=== PATIENT | male | born 1945 | race Caucasian/White ===

== ENCOUNTER 2021-12-30 11:19 | Inpatient (IN) ==
[2021-12-30 12:24] LABS: Basophils # (auto) 0.01 K/uL (0-0.2); Basophils % (auto) 0.1 %; Eosinophils # (auto) 0.04 K/uL (0-0.5); Eosinophils % (auto) 0.4 %; Hematocrit (blood only) 38.7 % (42-52); Hemoglobin 13.4 g/dL (14.0-18.0); Immature Granulocytes # (auto) 0.03 K/uL (0.00-0.02); Immature Granulocytes % (auto) 0.3 %; Lymphocytes # (auto) 1.25 K/uL (1.2-3.4); Lymphocytes % (auto) 12.4 %; Mean Corpuscular Hemoglobin 30.8 pg (25-34); Mean Corpuscular Hgb Conc 34.6 g/dL (32-36); Mean Platelet Volume 10.3 fL (7.4-10.4); Monocytes # (auto) 0.84 K/uL (0.11-0.59); Monocytes % (auto) 8.3 %; Neutrophils # (auto) 7.94 K/uL (1.4-6.5); Neutrophils % (auto) 78.5 %; Platelet Count 227 K/uL (130-400); RDW Coefficient of Variation 13.7 % (11.5-14.5); RDW Standard Deviation 44.9 fL (36.4-46.3); Red Blood Count 4.35 M/uL (4.7-6.1); White Blood Count 10.11 K/uL (4.8-10.8)
[2021-12-30 12:48] LABS: Albumin Globulin Ratio 1.1 (0.9-2); Albumin Level 4.1 gm/dl (3.4-5.0); BUN Creatinine Ratio 11.7 (10-20); Bilirubin,Total 0.8 mg/dl (0.2-1.0); Calcium 9.7 mg/dl (8.5-10.1); Creatinine Clr Calc Pharmacy 26.2 ml/min; Est GFR (African American) 22.8 ml/min; Est GFR (Non-African American) 19.6 ml/min; Globulin 3.7 gm/dl (2.5-4.0); Potassium 3.4 mmol/L (3.5-5.1); Total Protein 7.8 gm/dl (6.0-8.3)
[2021-12-30] MEDS ORDERED: SODIUM CHLORIDE 0.9% 1000ML 1,000 ML IV STA (12:59)
--- NOTE | 2021-12-30 13:40 | XRay Report ---
XR chest 1V portable CLINICAL HISTORY: elevated creat. Evaluate cardiopulmonary status COMPARISON STUDY: No previous studies for comparison. TECHNIQUE: 1 view of the chest FINDINGS: Single frontal view of the chest demonstrates the cardiomediastinal silhouette to be within normal li mits. The lungs are clear of alveolar opacities. There is no evidence for pleural effusion. There is no evidence for vascular congestion. There is no acute osseous pathology. IMPRESSION: 1. No acute cardiopulmonary disease. ACT 112: Negative or not required by law. Electronically signed by: Jj Lagos M.D. 12/30/2021 1:38 PM
--- NOTE | 2021-12-30 13:55 | Emergency Department Note ---
Impression & Plan ADAM (acute kidney injury), COVID-19, Hydronephrosis, Calculus, kidney ED Provider Note NAME: DENNYS GASTON AGE: 76 SEX: M : 1945 ARRIVES VIA: Walk-In INFORMANT: Patient, ED PROVIDER(S): Jan Newman DO CHIEF COMPLAINT: Generalized illness HPI: The patient is a 76-year-old male who presented to the emergency department at the request of his primary care physician for generalized illness. The patient has been having ongoing symptoms for quite some time. He does have a history of chronic kidney disease as well as kidney stones. He had lithotripsy in the past and had stent removal last week. He has been to the [facility] emergency department multiple times for the symptoms. He states he has been noted to have elevation in his creatinine compared to his baseline. He has been treated with IV fluids and then sent home. He went to see his family doctor in follow-up today was referred to our facility. 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 The patient is also been noticing nausea but denies having any chest pain. He denies having any fever today. He does admit to having a 30 pound weight loss recently. ROS: See above HPI for pertinent positives & negatives. A total of 10 systems reviewed and were otherwise negative. PAST MEDICAL HISTORY: See Below PAST SURGICAL HISTORY: See Below FAMILY HISTORY: See Below SOCIAL HISTORY: See Below HOME MEDICATIONS: See Below ALLERGIES: See Below VITALS: See Below PHYSICAL EXAMINATION: GENERAL: Patient is awake alert in no acute distress patient is resting comfortably and showing no signs of anxiety EYES: The conjunctivae are clear. The pupils are round and reactive. EARS, NOSE, MOUTH AND THROAT: The nose is without any evidence of any deformity. NECK: The neck is nontender and supple. RESPIRATORY: Normal respiratory effort is noted there is no evidence of wheezing rhonchi or rales CARDIOVASCULAR: Regular rate and rhythm noted there no murmurs rubs or gallops normal S1 normal S2. GASTROINTESTINAL: The abdomen is soft. Abdomen is nontender. MUSCULOSKELETAL/EXTREMITIES: There is no evidence of gross deformity full range of motion is noted in the hips and shoulders. SKIN: There is no obvious evidence of any rash. There are no petechiae, pallor or cyanosis noted. NEUROLOGIC: Patient is awake alert and oriented x3 strength is symmetric patellar reflexes are 2+ bilaterally MEDICAL DECISION MAKING: The patient is a 76-year-old male who is a history of chronic renal sufficiency who presented to the emergency department for an evaluation of elevated creatinine to baseline. The patient was seen at [facility] multiple times. His family doctor sent him to the emergency department at [facility] for further evaluation. The patient was treated with IV fluids in the emergency department. He was reevaluated multiple times. I discussed the ira ent's laboratory and radiographic studies with him. There was a delay in obtaining the urinalysis on the patient and I felt this was required to determine if there was an infection. Ultimately the urinalysis does not appear to be consistent with infection. I discussed patient's condition with the on- call [facility] hospitalist group. They have agreed to evaluate the patient in the emergency department for further management and disposition. Triage Nursing notes reviewed. Prior medical records reviewed Vital Signs: reviewed and remarkable for no significant abnormalities Differential diagnosis: Infection, dehydration, metabolic abnormality, hypo/hyperglycemia, electrolyte disturbance, anemia, hypoxia, cardiac sources, intracerebral event, toxicologic, neurologic, as well as other pathologies. ER treatment provided: See below Diagnostics interpreted by me: ECG: EKG was obtained in the emergency department. My interpretation is normal sinus rhythm at 64 bpm. There is no ectopy. There is no acute ST segment abnormalities noted. No previous tracing was available. Cardiac Monitoring: An order was placed for continuous cardiac monitoring. The monitor shows a rate of 65 bpm with sinus rhythm. Laboratory studies: As stated above and show below. Imaging studies: See below Consultation(s): I discussed this case with Herlinad Mcdaniel who is on-call for the [facility] hospitalist group. I discussed this case with Dr. Horton Past Med/Surg History Medical History CKD (chronic kidney disease) Kidney stone Surgical History H/O lithotripsy Social History Feels Safe at Home: Yes Allergies Allergies Allergy/AdvReac Type Severity Reaction Status Date / Time shrimp AdvReac Severe vomiting Unverified 12/30/21 16:07 and diarrhea Home Meds Home Medications Medication Instructions Recorded Confirmed amlodipine 5 mg tablet 5 mg PO DAILY 12/30/21 12/30/21 atorvastatin 40 mg tablet 40 mg PO DAILY 12/30/21 12/30/21 carvedilol 6.25 mg tablet 6.25 mg PO BID 12/30/21 12/30/21 glucagon 3 mg/actuation nasal 3 mg INTRANASAL UD 12/30/21 12/30/21 spray (Baqsimi) hydrochlorothiazide 25 mg tablet 25 mg QAM 12/30/21 12/30/21 insulin NPH-regular 70-30 U-100 20 unit SUBCUT QAM 12/30/21 12/30/21 insulin 100 unit/mL subcutaneous pen (Novolin 70-30 FlexPen U-100 Insulin) lisinopril 10 mg tablet 10 mg PO DAILY 12/30/21 12/30/21 semaglutide 1 mg/dose (4 mg/3 mL) 0 mg SUBCUT WK 12/30/21 12/30/21 subcutaneous pen injector (Ozempic) tamsulosin 0.4 mg capsule 0.4 mg PO BID 12/30/21 12/30/21 ticagrelor 90 mg tablet (Brilinta) 90 mg PO BID 12/30/21 12/30/21 Results & Data (ED) Vital Signs Vital Signs - 24 hr 12/30/21 11:25 12/30/21 13:21 12/30/21 13:35 Temperature 36.6 C Temperature Source Temporal Artery Scan Pulse Rate 69 Pulse Rate [Right Finger] 64 66 Respiratory Rate 16 16 18 Respiratory Effort / Characteristics Non-Labored Respiratory Depth Normal Normal Respiratory Pattern Blood Pressure 123/93 Blood Pressure [Right Arm] 115/71 115/71 Blood Pressure Mean 103 Blood Pressure Mean [Right Arm] 85 85 Pulse Oximetry 96 98 94 Oxygen Delivery Method Room Air Room Air Room Air Sepsis Recent Fever Within 48 Hours No Sepsis New/Unexplained Change in Mental Status No Sepsis Action Taken by Nursing No Action Required 12/30/21 13:39 12/30/21 15:32 12/30/21 17:03 Temperature Temperature Source Pulse Rate Pulse Rate [Right Finger] 64 65 Respiratory Rate 20 20 Respiratory Effort / Characteristics Non-Labored Spontaneous Non-Labored Spontaneous Respiratory Depth Normal Normal Respiratory Pattern Regular Regular Blood Pressure Blood Pressure [Right Arm] 123/71 127/78 Blood Pressure Mean Blood Pressure Mean [Right Arm] 88 94 Pulse Oximetry 95 95 Oxygen Delivery Method Room Air Room Air Room Air Sepsis Recent Fever Within 48 Hours Sepsis New/Unexplained Change in Mental Status Sepsis Action Taken by Jail Medications Current Medication List: was personally reviewed by me Laboratory Data Attestation: I reviewed the patient's lab results. Result diagrams: 12/30/21 12:00 12/30/21 12:00 Lab Results 12/30/21 12/30/21 12/30/21 Range/Units 12:00 12:00 13:35 WBC 10.11 (4.8-10.8) K/uL RBC 4.35 L (4.7-6.1) M/uL Hgb 13.4 L (14.0-18.0) g/dL Hct 38.7 L (42-52) % MCV 89.0 (80-100) fL MCH 30.8 (25-34) pg MCHC 34.6 (32-36) g/dL RDW Std Deviation 44.9 (36.4-46.3) fL RDW Coeff of Marisa 13.7 (11.5-14.5) % Plt Count 227 (130-400) K/uL MPV 10.3 (7.4-10.4) fL Immature Gran % (Auto) 0.3 % Neut % (Auto) 78.5 % Lymph % (Auto) 12.4 % Rapides % (Auto) 8.3 % Eos % (Auto) 0.4 % Baso % (Auto) 0.1 % Neut # (Auto) 7.94 H (1.4-6.5) K/uL Lymph # (Auto) 1.25 (1.2-3.4) K/uL Rapides # (Auto) 0.84 H (0.11-0.59) K/uL Eos # (Auto) 0.04 (0-0.5) K/uL Baso # (Auto) 0.01 (0-0.2) K/uL Immature Gran # (Auto) 0.03 H (0.00-0.02) K/uL Sodium 136 (136-145) mmol/L Potassium 3.4 L (3.5-5.1) mmol/L Chloride 104 (98-107) mmol/L Carbon Dioxide 21 (21-32) mmol/L Anion Gap 11 (3-11) BUN 35 H (6-23) mg/dl Creatinine 2.99 H (0.6-1.4) mg/dl Est Cr Clr Drug Dosing 26.2 ml/min Est GFR ( Amer) 22.8 ml/min Est GFR (Non-Af Amer) 19.6 ml/min BUN/Creatinine Ratio 11.7 (10-20) Glucose 170 H (70-99(Fasting)) mg/dl Calcium 9.7 (8.5-10.1) mg/dl Magnesium (1.7-2.4) mg/dl Total Bilirubin 0.8 (0.2-1.0) mg/dl AST 20 (13-39) U/L ALT 27 (7-52) U/L Alkaline Phosphatase 87 (34-104) U/L Total Creatine Kinase (30-223) U/L Troponin I High Sens (0-20) pg/ml Total Protein 7.8 (6.0-8.3) gm/dl Albumin 4.1 (3.4-5.0) gm/dl Globulin 3.7 (2.5-4.0) gm/dl Albumin/Globulin Ratio 1.1 (0.9-2) Lipase (11-82) U/L Urine Color Urine Appearance (Clear) Urine pH (4.5-7.5) Ur Specific [place] (1.000-1.030) Urine Protein (Negative) Urine Glucose (UA) (Negative) Urine Ketones (Negative) Urine Blood (Negative) Urine Nitrite (Negative) Urine Bilirubin (Negative) Urine Urobilinogen (Negative) Ur Leukocyte Esterase (Negative) Urine WBC (Auto) (0-5) /hpf Urine RBC (Auto) (0-4) /hpf U Hyaline Cast (Auto) (0-5) /lpf U Epithel Cells (Auto) (0-5) /lpf Urine Bacteria (Auto) (Negative) Urine Yeast SARS-CoV-2, RNA, NAAT POSITIVE A* (NEGATIVE) 12/30/21 12/30/21 12/30/21 Range/Units 13:49 13:49 17:10 WBC (4.8-10.8) K/uL RBC (4.7-6.1) M/uL Hgb (14.0-18.0) g/dL Hct (42-52) % MCV (80-100) fL MCH (25-34) pg MCHC (32-36) g/dL RDW Std Deviation (36.4-46.3) fL RDW Coeff of Marisa (11.5-14.5) % Plt Count (130-400) K/uL MPV (7.4-10.4) fL Immature Gran % (Auto) % Neut % (Auto) % Lymph % (Auto) % Rapides % (Auto) % Eos % (Auto) % Baso % (Auto) % Neut # (Auto) (1.4-6.5) K/uL Lymph # (Auto) (1.2-3.4) K/uL Rapides # (Auto) (0.11-0.59) K/uL Eos # (Auto) (0-0.5) K/uL Baso # (Auto) (0-0.2) K/uL Immature Gran # (Auto) (0.00-0.02) K/uL Sodium (136-145) mmol/L Potassium (3.5-5.1) mmol/L Chloride (98-107) mmol/L Carbon Dioxide (21-32) mmol/L Anion Gap (3-11) BUN (6-23) mg/dl Creatinine (0.6-1.4) mg/dl Est Cr Clr Drug Dosing ml/min Est GFR ( Amer) ml/min Est GFR (Non-Af Amer) ml/min BUN/Creatinine Ratio (10-20) Glucose (70-99(Fasting)) mg/dl Calcium (8.5-10.1) mg/dl Magnesium 1.7 (1.7-2.4) mg/dl Total Bilirubin (0.2-1.0) mg/dl AST (13-39) U/L ALT (7-52) U/L Alkaline Phosphatase (34-104) U/L Total Creatine Kinase 221 (30-223) U/L Troponin I High Sens 7.8 (0-20) pg/ml Total Protein (6.0-8.3) gm/dl Albumin (3.4-5.0) gm/dl Globulin (2.5-4.0) gm/dl Albumin/Globulin Ratio (0.9-2) Lipase 177 H (11-82) U/L Urine Color Yellow Urine Appearance Clear (Clear) Urine pH 5.0 (4.5-7.5) Ur Specific [place] 1.024 (1.000-1.030) Urine Protein 1+ H (Negative) Urine Glucose (UA) 3+ H (Negative) Urine Ketones Negative (Negative) Urine Blood 1+ H (Negative) Urine Nitrite Negative (Negative) Urine Bilirubin Negative (Negative) Urine Urobilinogen Negative (Negative) Ur Leukocyte Esterase Negative (Negative) Urine WBC (Auto) 1-5 (0-5) /hpf Urine RBC (Auto) 5-10 H (0-4) /hpf U Hyaline Cast (Auto) 1-5 (0-5) /lpf U Epithel Cells (Auto) 10-20 H (0-5) /lpf Urine Bacteria (Auto) Negative (Negative) Urine Yeast Not Reportable SARS-CoV-2, RNA, NAAT (NEGATIVE) Administered Medications Discontinued Medications Sodium Chloride (Nss 1000ml) 1,000 mls @ 999 mls/hr IV .Q1H1M STA Stop: 12/30/21 13:59 Last Infusion: 12/30/21 15:44 Dose: 0 mls/hr Documented by: [id number] Admin: 12/30/21 13:45 Dose: 999 mls/hr Documented by: [id number] Imaging Data Radiologist's Impression: Abdomen/Pelvis CT 12/30/21 12:59 CT SCAN OF THE ABDOMEN AND PELVIS WITHOUT IV CONTRAST CLINICAL HISTORY: Elevated serum creatinine COMPARISON STUDY: No priors. TECHNIQUE: CT scan of the abdomen and pelvis is performed from the lung bases to the proximal femora. Images are reviewed in the axial, sagittal, and coronal planes. IV contrast was not administered for this examination. A dose lowering technique was utilized adhering to the principles of ALARA. CT DOSE: 1082.63 mGycm FINDINGS: Lung bases: The heart is normal in size and without pericardial effusion. The coronary arteries are densely calcified. There are punctate calcified granulomas. A 2 mm noncalcified nodule is seen in the left lower lobe on image #3. The lung bases are otherwise clear noting bibasilar scarring/atelectasis. Liver: The unenhanced liver is normal in size, contour, and attenuation. There is no intrahepatic biliary ductal dilatation. Gallbladder: Unremarkable. Spleen: Normal in size and attenuation. Pancreas: Unremarkable. Adrenal glands: Unremarkable. Kidneys: The unenhanced kidneys demonstrate cortical atrophy. There are 2 obstructing calculi in the left proximal ureter which measure up to 1.4 cm. These are seen on images #204 and #218. The larger stone is seen at the level of L3. This causes moderate to severe left-sided hydronephrosis. An additional 5 mm calculus in the distal left ureter seen on image #369 just above the vesicoureteral junction. There is associated left-sided perinephric and periureteric stranding. There are numerous additional nonobstructing left renal calculi which measure up to 1.8 cm. Nonobstructing right renal calculi measure up to 8 mm. There is no right-sided hydronephrosis. An indeterminant 2.1 cm exophytic lesion arises from the interpolar left kidney on image #137. Additional simple and complex cysts are noted in both kidneys. Abdominal vasculature: There is advanced atherosclerotic calcification of the abdominal aorta. An aortobiiliac stent graft is in place. The residual aneurysm sac measures 4.9 x 5.4 cm (AP x transverse). Bowel: There are scattered colonic diverticula without CT evidence of acute diverticulitis. No bowel obstruction is identified. The appendix is well- visualized and normal. Peritoneum: There is no intraperitoneal free air or abdominal ascites. Lymphadenopathy: None. Pelvic viscera: The prostate gland is mildly enlarged and heterogeneous. The bladder is normal as visualized. Postoperative change is noted in the groin bilaterally. Skeletal structures: The skeletal structures are osteopenic. There are healed right-sided rib fractures. Mild lumbosacral spondylosis is observed. No lytic or blastic lesions are seen. IMPRESSION: 1. There are 3 obstructive left renal calculi as above. The largest stone measures 1.4 cm and this causes moderate to severe left left-sided hydronephrosis. 2. Numerous additional nonobstructing renal calculi are seen bilaterally. 3. A 2.1 cm indeterminant lesion arises from the interpolar left kidney. This could represent a complex cyst or less likely renal neoplasm. Correlate with any prior outside imaging studies to assess for stability. A nonemergent contrast-enhanced renal protocol CT or MRI could be considered for further evaluation. 4. The patient is status post aortobiiliac stent graft repair of an infrarenal abdominal aortic aneurysm. The residual aneurysm sac measures 4.9 x 5.4 cm. 5. Additional findings as above. ACT 112: Negative or not required by law. Electronically signed by: Talon Bradley M.D. 12/30/2021 3:24 PM Chest X-Ray 12/30/21 13:00 XR chest 1V portable CLINICAL HISTORY: elevated creat. Evaluate cardiopulmonary status COMPARISON STUDY: No previous studies for comparison. TECHNIQUE: 1 view of the chest FINDINGS: Single frontal view of the chest demonstrates the cardiomediastinal silhouette to be within normal limits. The lungs are clear of alveolar opacities. There is no evidence for pleural effusion. There is no evidence for vascular congestion. There is no acute osseous pathology. IMPRESSION: 1. No acute cardiopulmonary disease. ACT 112: Negative or not required by law. Electronically signed by: Jj Lagos M.D. 12/30/2021 1:38 PM Discharge Plan Visit Data Chief Complaint: Illness Stated Complaint: eye ED Provider: Jan Newman Discharge Problem: ADAM (acute kidney injury), COVID-19, Hydronephrosis, Calculus, kidney Patient Disposition: Being Evaluated by Hospitalist Forms Stand Alone Forms: My [facility] Prescriptions Prescriptions: No Action atorvastatin 40 mg tablet 40 mg PO DAILY RF: 0 carvedilol 6.25 mg tablet 6.25 mg PO BID RF: 0 amlodipine 5 mg tablet 5 mg PO DAILY RF: 0 tamsulosin 0.4 mg capsule 0.4 mg PO BID RF: 0 lisinopril 10 mg tablet 10 mg PO DAILY RF: 0 hydrochlorothiazide 25 mg tablet 25 mg QAM RF: 0 Novolin 70-30 FlexPen U-100 100 unit/mL (70-30) insulin pen 20 unit SUBCUT QAM RF: 0 Brilinta 90 mg tablet 90 mg PO BID RF: 0 Baqsimi 3 mg/actuation spray,non-aerosol 3 mg INTRANASAL UD RF: 0 Ozempic 1 mg/dose (4 mg/3 mL) pen injector 0 mg SUBCUT WK RF: 0 Referrals Referrals: Filiberto Hernandes [Primary Care Provider] - Discharge Problem: Hydronephrosis Qualifiers: Hydronephrosis type: unspecified Qualified Code(s): N13.30 - Unspecified hydronephrosis
[2021-12-30 14:49] LABS: Magnesium 1.7 mg/dl (1.7-2.4)
--- NOTE | 2021-12-30 15:25 | CT Scan Report ---
CT SCAN OF THE ABDOMEN AND PELVIS WITHOUT IV CONTRAST CLINICAL HISTORY: Elevated serum creatinine COMPARISON STUDY: No priors. TECHNIQUE: CT scan of the abdomen and pelvis is performed from the lung bases to the proximal femora. Images are reviewed in the axial, sagittal, and coronal planes. IV contrast was not administered for this examination. A dose lowering technique was utilized adhering to the principles of ALARA. CT DOSE: 1082.63 mGycm FINDINGS: Lung bases: The heart is normal in size and without pericardial effusion. The coronary arteries are d ensely calcified. There are punctate calcified granulomas. A 2 mm noncalcified nodule is seen in the left lower lobe on image #3. The lung bases are otherwise clear noting bibasilar scarring/atelectasis . Liver: The unenhanced liver is normal in size, contour, and attenuation. There is no intrahepatic harshil iary ductal dilatation. Gallbladder: Unremarkable. Spleen: Normal in size and attenuation. Pancreas: Unremarkable. Adrenal glands: Unremarkable. Kidneys: The unenhanced kidneys demonstrate cortical atrophy. There are 2 obstructing calculi in the left proximal ureter which measure up to 1.4 cm. These are seen on images #204 and #218. The larger s tone is seen at the level of L3. This causes moderate to severe left-sided hydronephrosis. An additio nal 5 mm calculus in the distal left ureter seen on image #369 just above the vesicoureteral junction . There is associated left-sided perinephric and periureteric stranding. There are numerous additiona l nonobstructing left renal calculi which measure up to 1.8 cm. Nonobstructing right renal calculi me asure up to 8 mm. There is no right-sided hydronephrosis. An indeterminant 2.1 cm exophytic lesion ar ises from the interpolar left kidney on image #137. Additional simple and complex cysts are noted in both kidneys. Abdominal vasculature: There is advanced atherosclerotic calcification of the abdominal aorta. An aor tobiiliac stent graft is in place. The residual aneurysm sac measures 4.9 x 5.4 cm (AP x transverse). Bowel: There are scattered colonic diverticula without CT evidence of acute diverticulitis. No bowel obstruction is identified. The appendix is well-visualized and normal. Peritoneum: There is no intraperitoneal free air or abdominal ascites. Lymphadenopathy: None. Pelvic viscera: The prostate gland is mildly enlarged and heterogeneous. The bladder is normal as vis ualized. Postoperative change is noted in the groin bilaterally. Skeletal structures: The skeletal structures are osteopenic. There are healed right-sided rib fractur es. Mild lumbosacral spondylosis is observed. No lytic or blastic lesions are seen. IMPRESSION: 1. There are 3 obstructive left renal calculi as above. The largest stone measures 1.4 cm and this ca uses moderate to severe left left-sided hydronephrosis. 2. Numerous additional nonobstructing renal calculi are seen bilaterally. 3. A 2.1 cm indeterminant lesion arises from the interpolar left kidney. This could represent a compl ex cyst or less likely renal neoplasm. Correlate with any prior outside imaging studies to assess for stability. A nonemergent contrast-enhanced renal protocol CT or MRI could be considered for further evaluation. 4. The patient is status post aortobiiliac stent graft repair of an infrarenal abdominal aortic aneur ysm. The residual aneurysm sac measures 4.9 x 5.4 cm. 5. Additional findings as above. ACT 112: Negative or not required by law. Electronically signed by: Talon Bradley M.D. 12/30/2021 3:24 PM
[2021-12-30 17:34] LABS: Appearance Urine Clear (Clear); Bacteria Urine Automated Negative (Negative); Bilirubin Urine Negative (Negative); Blood Urine 1+ (Negative); Color Urine Yellow; Glucose Urine UA 3+ (Negative); Ketones Urine Negative (Negative); Leukocyte Esterase Urine Negative (Negative); Nitrite Urine Negative (Negative); Protein Urine 1+ (Negative); Specific Gravity Urine 1.024 (1.000-1.030); Urobilinogen Urine Negative (Negative)
--- NOTE | 2021-12-30 18:52 | History & Physical Report ---
Date of Service December 30, 2021 Assessment & Plan (1) Ureteral stone with hydronephrosis: (2) Prnrb-ts-nfspecg kidney injury: (3) COVID-19: (4) Essential hypertension: (5) History of coronary artery disease: Plan: Left renal calculi with hydronephrosis- CT A/P reviewed as below. No evidence of UTI in UA, hence no indication for ABx. Pt had lithotripsy left side with stent placement 2 weeks ago and was removed a week back at [facility]. - ED physician discussed with urology who plans for stenting tomorrow. NPO after midnight - Analgesic prn, avoid nephrotoxics CT A/P- 1. There are 3 obstructive left renal calculi as above. The largest stone measures 1.4 cm and this causes moderate to severe left left-sided hydronephrosis. 2. Numerous additional nonobstructing renal calculi are seen bilaterally. 3. A 2.1 cm indeterminant lesion arises from the interpolar left kidney. This could represent a complex cyst or less likely renal neoplasm. Correlate with any prior outside imaging studies to assess for stability. A nonemergent contrast- enhanced renal protocol CT or MRI could be considered for further evaluation. 4. The patient is status post aortobiiliac stent graft repair of an infrarenal abdominal aortic aneurysm. The residual aneurysm sac measures 4.9 x 5.4 cm. Left renal lesion- seen in CT. Will obtain records from [facility] for comparison, if unable to get, will get MRI renal protocol for evaluation. Urology on board and to evaluate further. ADAM on CKD- from obstructive calculi. Plan for OR tomorrow. Avoid nephrotoxics. No NSAIDs. Hold lisinopril. Received IVF in ED. Recheck in am Covid 19 infection- his symptoms of generalized non well being, fatigue etc is likely from COVID. No indication for treatment currently as no respiratory symptoms. Essential HTN- continue norvasc, coreg. Hold lisinopril due to ADAM DM-2- doesn't take insulin or tradjental anymore. On jardiance. Will hold and start on SSI inhouse. H/o CAD s/p stenting- Stable, denies any chest pain. Continue brilinta, lipitor, coreg. H/o AAA s/p stenting DVT ppx- SCD Full code Updated at bedside History of Present Illness Chief Complaint: Feeling unwell; abnormal lab Primary Care Provider: Filiberto Hernandes 76 year old male with h/o HTN, DM, nephrolithiasis (2019 and 2 weeks back), CAD s/p stenting who presented to the ED not feeling well as well as abnormal labs. History taken from patient and at bedside. Patient usually follows [facility] for his care and new to our system. States he had left sided nephrolithiasis for which he had lithotripsy with stenting 2 weeks back and stent was removed a week ago last Monday. He asked his PCP for labs and got them drawn last Monday. He was found to have elevated creatinine and his PCP recommended him to come to our ED for further evaluation. States his usual Cr is around 2.2 or something like that but he does not remember the OP lab value. His Cr currently is 2.99 here. Also found to have left sided ureteral calculi with mod-severe hydronephrosis, largest size being 1.4 cm. States he has been feeling weak, tired, no energy and feels sleepy. Also had weigh loss of 30lbs over the past month or so. He also tested positive for COVID in the ED but no hypoxia, chest pain, shortness of breath or other symptoms. He states he never gets bad pain with his kidney stones. He does not smoke or drink alcohol. Allergies Allergy/AdvReac Type Severity Reaction Status Date / Time shrimp AdvReac Severe vomiting Unverified 12/30/21 16:07 and diarrhea Home Medications Medication Instructions Recorded Confirmed Type amlodipine 5 mg tablet 5 mg PO DAILY 12/30/21 12/30/21 History ascorbic acid (vitamin C) 1,000 mg 1 g PO DAILY 12/30/21 12/30/21 History tablet atorvastatin 40 mg tablet 40 mg PO DAILY 12/30/21 12/30/21 History carvedilol 6.25 mg tablet 6.25 mg PO BID 12/30/21 12/30/21 History cholecalciferol (vitamin D3) 50 50 mcg PO DAILY 12/30/21 12/30/21 History mcg (2,000 unit) tablet empagliflozin 25 mg tablet 25 mg PO DAILY 12/30/21 12/30/21 History (Jardiance) glucagon 3 mg/actuation nasal 3 mg INTRANASAL UD 12/30/21 12/30/21 History spray (Baqsimi) hydrochlorothiazide 25 mg tablet 25 mg QAM 12/30/21 12/30/21 History semaglutide 1 mg/dose (4 mg/3 mL) 0 mg SUBCUT WK 12/30/21 12/30/21 History subcutaneous pen injector (Ozempic) tamsulosin 0.4 mg capsule 0.4 mg PO BID 12/30/21 12/30/21 History ticagrelor 90 mg tablet (Brilinta) 90 mg PO BID 12/30/21 12/30/21 History Past Med/Surg History Medical History CKD (chronic kidney disease) Kidney stone Surgical History H/O lithotripsy Social History Feels Safe at Home: Yes Review of Systems Review of Systems: All systems reviewed & are unremarkable except as noted in Subjective Physical Exam Physical Exam: General: Sitting comfortably in bed, not in distress, on room air HEENT: EOMI, CHAYA, MMM Chest: Clear breath sounds bilaterally, no wheezes or crackles CVS: Regular rate and rhythm, normal heart sounds, no murmur Abdomen: Soft, non tender, not distended, normal bowel sounds No CVA tenderness Neuro: Awake, alert, oriented, conversing well, non focal Extremities: No cyanosis, clubbing or edema Results & Data Results & Data ([facility]) Vital Signs (Past 12 Hours) Vital Signs Temp Pulse Pulse Resp BP BP Pulse Ox 12/30/21 17:03 65 20 127/78 95 12/30/21 15:32 64 20 123/71 95 12/30/21 13:35 66 18 115/71 94 12/30/21 13:21 64 16 115/71 98 12/30/21 11:25 36.6 C 69 16 123/93 96 Laboratory Results Short CBC 12/30/21 Range/Units 12:00 WBC 10.11 (4.8-10.8) K/uL Hgb 13.4 L (14.0-18.0) g/dL Hct 38.7 L (42-52) % Plt Count 227 (130-400) K/uL BMP 12/30/21 12:00 Sodium 136 Potassium 3.4 L Chloride 104 Carbon Dioxide 21 BUN 35 H Creatinine 2.99 H Glucose 170 H Calcium 9.7 Cardiac Enzymes 12/30/21 Range/Units 13:49 Total Creatine Kinase 221 (30-223) U/L Liver Function 12/30/21 Range/Units 12:00 Total Bilirubin 0.8 (0.2-1.0) mg/dl AST 20 (13-39) U/L ALT 27 (7-52) U/L Alkaline Phosphatase 87 (34-104) U/L Albumin 4.1 (3.4-5.0) gm/dl Urine 12/30/21 Range/Units 17:10 Urine Color Yellow Urine Appearance Clear (Clear) Urine pH 5.0 (4.5-7.5) Ur Specific Lindsay 1.024 (1.000-1.030) Urine Protein 1+ H (Negative) Urine Glucose (UA) 3+ H (Negative) Diagnostic Findings Abdomen/Pelvis CT 12/30/21 12:59 CT SCAN OF THE ABDOMEN AND PELVIS WITHOUT IV CONTRAST CLINICAL HISTORY: Elevated serum creatinine COMPARISON STUDY: No priors. TECHNIQUE: CT scan of the abdomen and pelvis is performed from the lung bases to the proximal femora. Images are reviewed in the axial, sagittal, and coronal planes. IV contrast was not administered for this examination. A dose lowering technique was utilized adhering to the principles of ALARA. CT DOSE: 1082.63 mGycm FINDINGS: Lung bases: The heart is normal in size and without pericardial effusion. The coronary arteries are densely calcified. There are punctate calcified granulomas. A 2 mm noncalcified nodule is seen in the left lower lobe on image #3. The lung bases are otherwise clear noting bibasilar scarring/atelectasis. Liver: The unenhanced liver is normal in size, contour, and attenuation. There is no intrahepatic biliary ductal dilatation. Gallbladder: Unremarkable. Spleen: Normal in size and attenuation. Pancreas: Unremarkable. Adrenal glands: Unremarkable. Kidneys: The unenhanced kidneys demonstrate cortical atrophy. There are 2 obstructing calculi in the left proximal ureter which measure up to 1.4 cm. These are seen on images #204 and #218. The larger stone is seen at the level of L3. This causes moderate to severe left-sided hydronephrosis. An additional 5 mm calculus in the distal left ureter seen on image #369 just above the vesicoureteral junction. There is associated left-sided perinephric and periureteric stranding. There are numerous additional nonobstructing left renal calculi which measure up to 1.8 cm. Nonobstructing right renal calculi measure up to 8 mm. There is no right-sided hydronephrosis. An indeterminant 2.1 cm exophytic lesion arises from the interpolar left kidney on image #137. Additional simple and complex cysts are noted in both kidneys. Abdominal vasculature: There is advanced atherosclerotic calcification of the abdominal aorta. An aortobiiliac stent graft is in place. The residual aneurysm sac measures 4.9 x 5.4 cm (AP x transverse). Bowel: There are scattered colonic diverticula without CT evidence of acute diverticulitis. No bowel obstruction is identified. The appendix is well- visualized and normal. Peritoneum: There is no intraperitoneal free air or abdominal ascites. Lymphadenopathy: None. Pelvic viscera: The prostate gland is mildly enlarged and heterogeneous. The bladder is normal as visualized. Postoperative change is noted in the groin bilaterally. Skeletal structures: The skeletal structures are osteopenic. There are healed right-sided rib fractures. Mild lumbosacral spondylosis is observed. No lytic or blastic lesions are seen. IMPRESSION: 1. There are 3 obstructive left renal calculi as above. The largest stone measures 1.4 cm and this causes moderate to severe left left-sided hydronephrosis. 2. Numerous additional nonobstructing renal calculi are seen bilaterally. 3. A 2.1 cm indeterminant lesion arises from the interpolar left kidney. This could represent a complex cyst or less likely renal neoplasm. Correlate with any prior outside imaging studies to assess for stability. A nonemergent contrast- enhanced renal protocol CT or MRI could be considered for further evaluation. 4. The patient is status post aortobiiliac stent graft repair of an infrarenal abdominal aortic aneurysm. The residual aneurysm sac measures 4.9 x 5.4 cm. 5. Additional findings as above. ACT 112: Negative or not required by law. Electronically signed by: Talon Bradlye M.D. 12/30/2021 3:24 PM Chest X-Ray 12/30/21 13:00 XR chest 1V portable CLINICAL HISTORY: elevated creat. Evaluate cardiopulmonary status COMPARISON STUDY: No previous studies for comparison. TECHNIQUE: 1 view of the chest FINDINGS: Single frontal view of the chest demonstrates the cardiomediastinal silhouette to be within normal limits. The lungs are clear of alveolar opacities. There is no evidence for pleural effusion. There is no evidence for vascular congestion. There is no acute osseous pathology. IMPRESSION: 1. No acute cardiopulmonary disease. ACT 112: Negative or not required by law. Electronically signed by: Jj Lagos M.D. 12/30/2021 1:38 PM Code Status & VTE Plan VTE Prophylaxis Plan VTE Prophylaxis will be ordered: Yes
--- NOTE | 2021-12-30 19:58 | Urology Consultation ---
Date of Consultation December 30, 2021 Assessment & Plan (1) Ureteral stone with hydronephrosis: Patient is being admitted to the hospital. From a urologic standpoint we recommend proceeding as follows: Provide analgesics if needed Provide antiemetics if needed Concerning his elevated creatinine would recommend holding nephrotoxic medications. Nephrology consultation has been requested Recommend hydration measures to be employed with IV fluids. Follow serial labs Initiate Flomax for expulsive therapy Recommend straining all urine and analyzing any kidney stones that are passed. Recommend making the patient n.p.o. at midnight tonight and he will be reevaluated in morning to determine if cystoscopy is required. At the present time the patient is afebrile and hemodynamically stable and therefore not feel an emergent urologic procedure is necessary. Additional recommendation will be forthcoming based on his clinical course as unfolds History of Present Illness Reason for Consultation: Nephrolithiasis/hydronephrosis History of Present Illness This is a 76-year-old male who presented [facility] emergency department at the recommendation of his primary care physician. Patient notes that approximately 2 weeks ago he was found to have acute kidney injury and subsequent evaluation revealed the patient had an obstructing kidney stone. Patient received urologic care at [facility] and [place], [place]. Patient reports that he had laser lithotripsy and ureteral stent placed. He notes that the ureteral stent was removed approximately 1 week ago and he has been doing fine. He said he had routine blood work checked by his primary care physician where he was noted to have elevated creatinine and he was instructed to seek medical attention at the nearest emergency department and thus he presented to [facility]. The patient specifically denies any back or flank pain. He denies any dysuria or hematuria. He says that he is able to empty his bladder completely. He denies any fevers, shakes, chills. He denies any nausea or vomiting. No abdominal pain is reported. Since arrival to the emergency department the patient has been checked for COVID which came back positive. The patient notes that he is vaccinated and he is completely asymptomatic regarding his COVID infection. He specifically denies any loss of the sense of taste or smell. He denies any sore throat. He denies any headache or myalgias. He denies any cough or shortness of breath. Since arrival to the emergency department the patient has had labs and imaging which independent reviewed. A chest x-ray showed no evidence of pneumonia. CT scan abdomen pelvis showed the patient had approximately 3 left renal stones that were causing moderate to severe left-sided hydronephrosis. The largest stone measured 1.4 cm. Patient was also noted to have an indeterminant 2.1 cm lesion in the left kidney. Labs include a CBC her white blood cell count and platelet count were normal. His hemoglobin and hematocrit were 13.4 and 38.7. Chemistry profile showed sodium was 136 with a potassium of 3.4. His BUN and creatinine were 35 and 2.9. There is no elevation of his LFTs. There was a slight elevation of his lipase at 177. Urinalysis did show 1+ blood but was not otherwise indicative of infection. At the time my interview is resting comfortably in bed he was in no distress. Allergies Allergy/AdvReac Type Severity Reaction Status Date / Time shrimp AdvReac Severe vomiting Unverified 12/30/21 16:07 and diarrhea Home Medications Medication Instructions Recorded Confirmed Type amlodipine 5 mg tablet 5 mg PO DAILY 12/30/21 12/30/21 History ascorbic acid (vitamin C) 1,000 mg 1 g PO DAILY 12/30/21 12/30/21 History tablet atorvastatin 40 mg tablet 40 mg PO DAILY 12/30/21 12/30/21 History carvedilol 6.25 mg tablet 6.25 mg PO BID 12/30/21 12/30/21 History cholecalciferol (vitamin D3) 50 50 mcg PO DAILY 12/30/21 12/30/21 History mcg (2,000 unit) tablet empagliflozin 25 mg tablet 25 mg PO DAILY 12/30/21 12/30/21 History (Jardiance) glucagon 3 mg/actuation nasal 3 mg INTRANASAL UD 12/30/21 12/30/21 History spray (Baqsimi) hydrochlorothiazide 25 mg tablet 25 mg QAM 12/30/21 12/30/21 History semaglutide 1 mg/dose (4 mg/3 mL) 1 mg SUBCUT WK 12/30/21 12/30/21 History subcutaneous pen injector (Ozempic) tamsulosin 0.4 mg capsule 0.4 mg PO BID 12/30/21 12/30/21 History ticagrelor 90 mg tablet (Brilinta) 90 mg PO BID 12/30/21 12/30/21 History Patient History Medical History CKD (chronic kidney disease) Kidney stone Surgical History H/O lithotripsy Social History Feels Safe at Home: Yes Review of Systems Constitutional: no fever and no chills Eyes: no eye pain Ear, Nose, Mouth, Throat: no ear pain Respiratory: no cough and no dyspnea Cardiovascular: no chest pain Gastrointestinal: + nausea and + vomiting; no abdominal pain Genitourinary: no dysuria, no hematuria or no flank pain Musculoskeletal: no back pain Integumentary: no rash Neurologic: no localized weakness Physical Exam Constitutional: WD/WN, vitals as above Eyes: no conjunctival abnormality ENMT: Ears: no hearing impairment and no external ear abnormality Mouth: no oropharynx abnormality Neck: trachea midline Respiratory: normal respiratory effort; no respiratory distress and no labored breathing Cardiovascular: Rate/Rhythm: regular rate and regular rhythm Gastrointestinal (Abdomen): Soft, nontender, nondistended. There is no pain with palpation Musculoskeletal: No calf tenderness, no lower extremity edema Skin: no rashes Neurologic: moves all extremities Psychiatric: A+Ox3, euthymic affect Results & Data ([facility]) Vital Signs (Past 12 Hours) Vital Signs Temp Pulse Pulse Resp BP BP Pulse Ox 12/30/21 17:03 65 20 127/78 95 12/30/21 15:32 64 20 123/71 95 12/30/21 13:35 66 18 115/71 94 12/30/21 13:21 64 16 115/71 98 12/30/21 11:25 36.6 C 69 16 123/93 96 PG Care Time/CCT Total # of Minutes Spent Total Time Spent with Patient: Total time spent is greater than 50% in coordination of care (as documented) at patient's floor/unit and/or counseling patient: Coding Level of Care Code 44169 Inpt Consult Level 5 Diagnoses Ureteral stone with hydronephrosis N13.2
[2021-12-30] MEDS ORDERED: DEXTROSE 50% 50 ML SYRINGE IV PRN (21:14)
[2021-12-30] MEDS ORDERED: INSULIN ASPART PER UNIT SC SCH (21:14)
[2021-12-30] MEDS ORDERED: GLUCAGON FOR INJ 1 MG VIAL SQ PRN (21:14)
[2021-12-30] MEDS ORDERED: CARBOHYDRATES FOR HYPOGLYCEMIA PO PRN (21:14)
[2021-12-30] MEDS ORDERED: GLUCOSE 40% GEL 15 GM TUBE PO PRN (21:14)
[2021-12-30] MEDS ORDERED: ACETAMINOPHEN 325 MG TAB PO PRN (21:14)
[2021-12-30] MEDS ORDERED: GLUCOSE 10 TABS/TUBE PO PRN (21:14)
[2021-12-30] MEDS ORDERED: POTASSIUM CHLORIDE CRTAB 20 MEQ TABCR PO ONE (21:23)
[2021-12-30] MEDS ORDERED: MELATONIN 3 MG TAB PO SCH (21:30)
[2021-12-30] MEDS: carvediloL 6.25 MG TAB PO SCH (22:40)
[2021-12-30] MEDS: TAMSULOSIN HCL 0.4 MG CAP PO SCH (22:40)
[2021-12-30] MEDS: SODIUM CHLORIDE 0.9% 1000ML 1,000 ML IV SCH (22:41)
[2021-12-30] MEDS: HEPARIN SOD 5,000 UNIT/0.5 ML VIAL SQ SCH (22:42)
[2021-12-30] MEDS: TICAGRELOR 90 MG TAB PO SCH (22:49)
[2021-12-31] MEDS: HEPARIN SOD 5,000 UNIT/0.5 ML VIAL SQ SCH (05:54)
[2021-12-31] MEDS ORDERED: Nursing to Pharmacy Communication SCH (07:15)
[2021-12-31 07:29] LABS: Hematocrit (blood only) 34.4 % (42-52); Hemoglobin 11.7 g/dL (14.0-18.0); Mean Corpuscular Hemoglobin 29.8 pg (25-34); Mean Corpuscular Volume 87.8 fL (80-100); Mean Platelet Volume 10.4 fL (7.4-10.4); Platelet Count 205 K/uL (130-400); RDW Coefficient of Variation 13.7 % (11.5-14.5); RDW Standard Deviation 43.8 fL (36.4-46.3); Red Blood Count 3.92 M/uL (4.7-6.1)
[2021-12-31 08:08] LABS: BUN Creatinine Ratio 12.8 (10-20); Calcium 8.7 mg/dl (8.5-10.1); Creatinine Clr Calc Pharmacy 29.2 ml/min; Est GFR (African American) 26.2 ml/min; Est GFR (Non-African American) 22.6 ml/min; Potassium 3.4 mmol/L (3.5-5.1)
--- NOTE | 2021-12-31 08:44 | Urology Progress Note ---
Date of Service December 31, 2021 Assessment & Plan (1) Ureteral stone with hydronephrosis: (2) ADAM (acute kidney injury): (3) COVID-19: Plan: 76yo M admitted with ADAM secondary to 3 obstructive left renal calculi largest measuring 1.4 cm with moderate to severe left-sided hydronephrosis. Patient also incidentally found to be Covid positive. - Afebrile, hemodynamically stable, non-toxic appearing. - Labs reviewed - Wbc 6.80, Creatinine 2.66 (2.99 yesterday). - Urinalysis did not appear infected, urine culture is pending. - Voiding without issue. Plan- - Plan of care and imaging reviewed with Dr. Saenz, on-call urologist. - Given his ADAM in the context of 3 obstructive left renal calculi causing moderate to severe hydronephrosis, will proceed with OR for cystoscopy, left retrograde pyelogram, left ureteral stent placement. - Risks and benefits to be reviewed with patient by Dr. Saenz. OR notified. Preoperative CXR and EKG in chart. Will cover with IV Ancef preoperatively. - Patient agreeable to plan, all questions were answered. - Keep NPO. - Continue supportive care. - Will continue to follow. Admission and Anticipated Discharge Date Admission Date: December 30, 2021 Supervising Physician Co-Signing Physician Notes I have discussed Mr. Craig's case with MAKAYLA Sanchez and agree with the above documentation. Renal function is returning towards normal, although there is persistent stone in the left ureter and left kidney. We will plan for left ureteral stent placement to allow maximal decompression and drainage of his left kidney. We will discuss further stone management as an outpatient. He may be a good candidate for PCNL. Subjective Pt examined at bedside this AM. Awake, resting in bed on arrival. No acute distress. Denies abdominal, flank, and back pain at present. Denies fever or chills. No nausea or vomiting. Has been NPO. Voiding without issue. Denies hematuria/dysuria. Review of Systems Constitutional: as per Subjective / HPI Gastrointestinal: as per Subjective / HPI Genitourinary: + as per Subjective / HPI Physical Exam Constitutional: well developed and well nourished; no acute distress and not ill appearing Respiratory: normal respiratory effort and able to speak in complete sentences; no labored breathing and no audible wheezes Gastrointestinal (Abdomen): Inspection/Auscultation: abdomen normal to inspection; abdomen not distended Musculoskeletal: Head/Neck/Chest: normocephalic Skin: No visible rashes or lesions to exposed skin areas Neurologic: moves all extremities and awake Psychiatric: Orientation: alert, oriented x 3 and cooperative Results & Data ([facility]) Vital Signs (Past 12 Hours) Vital Signs Temp Pulse Resp BP Pulse Ox 12/31/21 07:46 37.1 C 61 18 101/53 L 96 12/30/21 21:16 36.6 C 60 16 144/78 H 98 PG Care Time/CCT Total # of Minutes Spent Total Time Spent with Patient: Total time spent is greater than 50% in coordination of care (as documented) at patient's floor/unit and/or counseling patient: Coding Level of Care Code 20002 Subseq Hosp Care Lvl 2 Diagnoses Ureteral stone with hydronephrosis N13.2 ADAM (acute kidney injury) N17.9 COVID-19 U07.1
[2021-12-31] MEDS: TAMSULOSIN HCL 0.4 MG CAP PO SCH (08:53)
[2021-12-31] MEDS: carvediloL 6.25 MG TAB PO SCH (08:54)
[2021-12-31] MEDS: TICAGRELOR 90 MG TAB PO SCH (08:55)
[2021-12-31] MEDS ORDERED: POTASSIUM CHLORIDE CRTAB 20 MEQ TABCR PO STA (08:57)
[2021-12-31 08:58] LABS: Estimated Average Glucose 174 mg/dl; Hemoglobin A1C 7.7 % (4.5-5.6)
[2021-12-31] MEDS ORDERED: ATORVASTATIN 40 MG TAB PO SCH (09:00)
[2021-12-31] MEDS ORDERED: amLODIPine BESYLATE 5 MG TAB PO SCH (09:00)
[2021-12-31] MEDS ORDERED: ceFAZolin 2000MG 2,000 MG/15 ML SYR IV ONE (10:13)
[2021-12-31] MEDS: SODIUM CHLORIDE 0.9% 1000ML 1,000 ML IV SCH (11:45)
[2021-12-31] MEDS ORDERED: INSULIN ASPART PER UNIT SC SCH (12:00)
[2021-12-31] MEDS ORDERED: ceFAZolin 2,000 MG/15 ML IV PUSH IV ONE (13:29)
[2021-12-31] MEDS ORDERED: LIDOCAINE 2% 2 ML VIAL/AMP(20MG/ML) INFIL ONE (13:59)
[2021-12-31] MEDS ORDERED: MIDAZOLAM HCL 1 MG/ML 2ML VIAL ONE (13:59)
[2021-12-31] MEDS ORDERED: PROPOFOL IV EMULSION 10 MG/ML 20 ML VIAL IV ONE (13:59)
[2021-12-31] MEDS ORDERED: fentaNYL citrate 100 MCG/2 ML VIAL ONE (13:59)
[2021-12-31] MEDS ORDERED: DIATRIZOATE MEGLUMINE 30% 100ML VIAL INSTIL ONE (14:10)
--- NOTE | 2021-12-31 14:13 | Anesthesiology Consultation ---
Date of Service December 31, 2021 Assessment & Plan ASA ASA3 Proposed Anesthesia Anesthesia Type: MAC Risk / Benefits Reviewed With: PT / POA / Parent / Guardian, Accepts Plan and Informed Consent Obtained History Surgery Operation Date: 12/31/21 11:10 Proposed Procedures p Cystoscopy Left Retrograde Pyelogram with Stent Placement - Yovani Saenz MD Height/Weight Height: 5 ft 9 in Weight: 105.9 kg Allergies Allergy/AdvReac Type Severity Reaction Status Date / Time shrimp AdvReac Severe vomiting Unverified 12/30/21 16:07 and diarrhea Medications Home Medications Medication Instructions Recorded Confirmed Last Taken amlodipine 5 mg tablet 5 mg PO DAILY 12/30/21 12/30/21 Unknown ascorbic acid (vitamin C) 1,000 mg 1 g PO DAILY 12/30/21 12/30/21 Unknown tablet atorvastatin 40 mg tablet 40 mg PO DAILY 12/30/21 12/30/21 Unknown carvedilol 6.25 mg tablet 6.25 mg PO BID 12/30/21 12/30/21 Unknown cholecalciferol (vitamin D3) 50 50 mcg PO DAILY 12/30/21 12/30/21 Unknown mcg (2,000 unit) tablet empagliflozin 25 mg tablet 25 mg PO DAILY 12/30/21 12/30/21 Unknown (Jardiance) glucagon 3 mg/actuation nasal 3 mg INTRANASAL UD 12/30/21 12/30/21 Unknown spray (Baqsimi) hydrochlorothiazide 25 mg tablet 25 mg QAM 12/30/21 12/30/21 Unknown semaglutide 1 mg/dose (4 mg/3 mL) 1 mg SUBCUT WK 12/30/21 12/30/21 Unknown subcutaneous pen injector (Ozempic) tamsulosin 0.4 mg capsule 0.4 mg PO BID 12/30/21 12/30/21 Unknown ticagrelor 90 mg tablet (Brilinta) 90 mg PO BID 12/30/21 12/30/21 Unknown Active Medications Generic Name Dose Route Start Last Admin Trade Name Freq PRN Reason Stop Dose Admin Amlodipine Besylate 5 mg 12/31/21 09:00 12/31/21 08:57 Amlodipine Besylate 5 Mg Tab PO 01/30/22 08:59 Not Given DAILY AMANDA Atorvastatin Calcium 40 mg 12/31/21 09:00 12/31/21 08:53 Atorvastatin 40 Mg Tab PO 01/30/22 08:59 40 mg DAILY AMANDA Administration Carvedilol 6.25 mg 12/30/21 21:30 12/31/21 08:54 Carvedilol 6.25 Mg Tab PO 01/29/22 21:29 6.25 mg BID AMANDA Administration Heparin Sodium (Porcine) 5,000 units 12/30/21 22:00 12/31/21 05:54 Heparin Sod 5,000 Unit/0.5 Ml Vial SQ 01/29/22 21:59 5,000 units Q8 AMANDA Administration Sodium Chloride 1,000 mls @ 80 mls/hr 12/30/21 21:30 12/31/21 13:57 Nss 1000ml IV 01/30/22 21:29 0 mls/hr .[id number] AMANDA Infusion Insulin Aspart 0 units 12/31/21 12:00 12/31/21 11:58 Insulin Aspart Per Unit SC 01/29/22 21:13 Not Given Q6 AMANDA Melatonin 9 mg 12/30/21 21:30 12/30/21 22:39 Melatonin 3 Mg Tab PO 01/29/22 21:29 9 mg HS AMANDA Administration Tamsulosin HCl 0.4 mg 12/30/21 21:30 12/31/21 08:53 Tamsulosin Hcl 0.4 Mg Cap PO 01/29/22 21:29 0.4 mg BID AMANDA Administration Ticagrelor 90 mg 12/30/21 21:30 12/31/21 08:55 Ticagrelor 90 Mg Tab PO 01/29/22 21:29 Not Given BID AMANDA NPO Date Last Intake of Fluids: 12/31/21 Time Last Intake of Fluids: 00:00 Last Intake of Fluids Comment: "water" Date Last Intake of Solids: 12/31/21 Time Last Intake of Solids: 00:00 Last Intake of Solids Comment: "odalis crackers" Past Medical History Medical History CKD (chronic kidney disease) Kidney stone Exercise / Class Metabolic Activity II 4-5 Yardwork/Stairs/Walk up hill Past Surgical History Surgical History H/O lithotripsy Past Anesthesia History No Hx of Anesthesia Complications and No Family Hx of Anesthesia Complications History of PONV No Hx of PONV and No Hx of Motion Sickness Social History Smoking Status: Former smoker tobacco type: cigarettes Hx Alcohol Use: No Hx Substance Use: No Review of Systems denies fever/cough/ colds/ chest pain/ SOB/ ELVIA denies ELVIA Physical Exam Vital Signs Last Vital Signs Temp 36.9 C 12/31/21 13:55 Pulse 58 L 12/31/21 13:55 Resp 18 12/31/21 13:55 BP 128/72 12/31/21 13:55 Pulse Ox 97 12/31/21 13:55 ENMT Mouth: no TMJ abnormality and no dentition abnormality Thyromental Distance: > or= 3.5 Finger Breadths Mallampati Class: II Neck neck extension not limited Respiratory normal respiratory effort; no respiratory distress Auscultation: lungs clear to auscultation bilaterally Cardiovascular Rate/Rhythm: regular rate and regular rhythm Neurologic moves all extremities Psychiatric Orientation: alert and oriented x 3 Testing Laboratory Results 12/31/21 06:25 12/31/21 06:25 Hemoglobin A1c 7.7 % (4.5-5.6) H 12/31/21 06:25 Urine Color Yellow 12/30/21 17:10 Urine Appearance Clear (Clear) 12/30/21 17:10 Urine pH 5.0 (4.5-7.5) 12/30/21 17:10 Ur Specific [place] 1.024 (1.000-1.030) 12/30/21 17:10 Urine Protein 1+ (Negative) H 12/30/21 17:10 Urine Glucose (UA) 3+ (Negative) H 12/30/21 17:10 Urine Ketones Negative (Negative) 12/30/21 17:10 Urine Nitrite Negative (Negative) 12/30/21 17:10 Ur Leukocyte Esterase Negative (Negative) 12/30/21 17:10 Urine WBC (Auto) 1-5 /hpf (0-5) 12/30/21 17:10 Urine RBC (Auto) 5-10 /hpf (0-4) H 12/30/21 17:10 U Hyaline Cast (Auto) 1-5 /lpf (0-5) 12/30/21 17:10 U Epithel Cells (Auto) 10-20 /lpf (0-5) H 12/30/21 17:10 Urine Bacteria (Auto) Negative (Negative) 12/30/21 17:10 12/30/21 17:10 Urine Culture - Preliminary Urine,Clean Catch No growth - Less than 1,000 colonies/mL, Final report to follow. 12/31/21 12/31/21 11:47 06:20 POC Glucose 123 H 115 H
--- NOTE | 2021-12-31 15:14 | Operative Report ---
PG Post Operative Report Pre & Post Diagnosis Operation Date: 12/31/21 11:10 Pre-Op Diagnosis: LEFT URETERAL STONE Post-Op Diagnosis: left ureteral stone I identified the patient and participated in the time-out.: Yes Procedure Operation Date: 12/31/21 11:10 Actual Procedures p Cystoscopy Left Retrograde Pyelogram with left ureteral Stent Placement(Left) - Yovani Saenz MD Surgeon Yovani Saenz MD 3D Specialist None Estimated Blood Loss 0 Findings Consistent with Post-Op Diagnosis Successful left ureteral stent placement Specimens None Drains 6 Uzbek by 26 cm double-J ureteral stent in the left ureter Anesthesia Type MAC Complications none Disposition Accompanied Patient To Recovery: Yes Indications This is a 76-year-old male who recently underwent laser lithotripsy an outside facility. He was sent to the emergency department by his primary care doctor after he was found to have an elevated creatinine. He had been feeling weak as well and on laboratory evaluation was found to have incidental COVID-[address] scan performed in the ED demonstrated an obstructing left ureteral stone, as well as a large residual stone in the left kidney. Due to elevated creatinine and borderline renal function at baseline, he is being brought to the OR for left ureteral stent placement to maximize kidney drainage. Description of Procedure The patient was identified in the holding area and informed consent was confirmed. They were marked on the left side, then were taken to the operating room where general anesthesia was initiated. They were placed in the dorsal lithotomy position with all pressure points appropriately padded. They were prepped and draped in the usual sterile fashion and a preoperative timeout was performed. A well-lubricated cystoscope was inserted per urethra and panendoscopy was performed. The pendulous urethra was normal. There was some tightness at the bulbar urethra, however this was bypassed with gentle pressure from the cystoscope. The prostate was enlarged with a somewhat high bladder neck. Ureteral orifices were in orthotopic position. The bladder was noted to be mildly trabeculated. There was some stone debris within the lumen of the bladder. The left ureteral orifice was identified and cannulated with a 5 Uzbek open-end ed catheter. A retrograde pyelogram was performed demonstrating the distal ureter was fairly normal in course and caliber. In the proximal ureter there was some resistance and there was a large filling defect, consistent with the obstructing stone. A 0.038" ZIPwire was advanced to the level of the kidney under fluoroscopic guidance. Over the wire, a 6 Uzbek x 26 centimeter double-J ureteral stent was advanced. When the wire was removed, the proximal curl was visualized in the kidney with x-ray, and the distal curl visualized in the bladder with the cystoscope. There was drainage of urine appreciated through the ureteral stent. At this point the bladder was drained and all instrumentation was removed. The patient was then awakened from anesthesia and was brought to the PACU in stable condition. I attest to the content of the Intraoperative Record and any orders documented therein. Any exceptions are noted below.
--- NOTE | 2021-12-31 15:20 | Anesthesiology Progress Note ---
Date of Service December 31, 2021 Anesthesia Post Procedure Vital Signs Vital Signs: Temp Pulse Pulse Resp BP Pulse Ox 12/31/21 13:55 36.9 C 58 L 18 128/72 97 12/31/21 08:55 65 124/72 12/31/21 07:46 37.1 C 61 18 101/53 L 96 12/30/21 21:16 36.6 C 60 16 144/78 H 98 12/30/21 17:03 65 20 127/78 95 12/30/21 15:32 64 20 123/71 95 Transfer of Care Handoff Completed per policy Notes Mental Status: alert / awake / arousable and participated in evaluation Patient Amnestic to Procedure: Yes Nausea / Vomiting: adequately controlled Pain: adequately controlled Airway Patency, RR, SpO2: stable & adequate BP & HR: stable & adequate Hydration State: stable & adequate Anesthetic Complications: no major complications apparent and Pt Satisfied with anesthetic care
--- NOTE | 2021-12-31 15:53 | Fluoroscopy Report ---
FL retrograde includes kub CLINICAL HISTORY: Left ureteral stent placement. COMPARISON STUDY: CT of the abdomen and pelvis December 30, 2021. FLUOROSCOPY TIME: 14 seconds. FLUOROSCOPIC IMAGES: 1 FINDINGS: Fluoroscopy was provided during left ureteral stent placement. The proximal aspect of the s tent projects over the left renal pelvis. Bifurcated aortoiliac stent graft is partially imaged. IMPRESSION: Fluoroscopy provided during left ureteral stent placement. ACT 112: Negative or not required by law. Electronically signed by: Steven Pisano M.D. 12/31/2021 3:52 PM
--- NOTE | 2021-12-31 15:59 | Consultation Report ---
NEPHROLOGY CONSULTATION NOTE: DATE OF CONSULTATION: 12/31/2021. REASON FOR CONSULTATION: Acute renal failure and CKD in the setting of hydronephrosis with kidney stone. HISTORY OF PRESENT ILLNESS: The patient is a 76-year-old white male who is followed by all around patternmaker, Dr. Lake in [place], [place]. As per the patient, his baseline creatinine is in the low 2s, but I do not have exact documentation to prove that. As per the patient, he had left sided nephrolithiasis, for which he had lithotripsy with stenting done 2 weeks ago and then the stent was removed about a week ago. He had labs done as an outpatient and was told to go to the hospital because of abnormal labs and ongoing issue with a kidney stone. His creatinine on admission here was 2.[address] abdomen and pelvis done yesterday, which shows 3 obstructive left renal calculus causing moderate to severe left-sided hydronephrosis and there were numerous kidney stones seen bilaterally. The patient is supposed to go to the operation room later today and is supposed to have cystoscopy with left retrograde pyelogram, left ureteral stent placement. He will be having further urological procedure for the kidney stone as an outpatient. Creatinine this morning was already slightly better at 2.6. There was no mention of urinary infection. The patient is otherwise hemodynamically stable with good vital signs. He was also incidentally found to be positive for COVID-19 infection and he is in isolation for that. PAST MEDICAL AND SURGICAL HISTORY: Includes hypertension, type 2 diabetes, history of coronary artery disease, status post stenting, history of AAA, status post stenting, history of recurrent kidney stone. HOME MEDICATIONS: Currently includes amlodipine 5, vitamin C, Lipitor 40, carvedilol 6.25 twice daily, vitamin D 50 mcg daily, Jardiance, glucagon 3 mg intranasal as needed, hydrochlorothiazide 25 daily, Ozempic once a week, tamsulosin 0.4 mg twice daily, Brilinta. FAMILY HISTORY: Negative for renal disease or dialysis. SOCIAL HISTORY: He is and lives with his . Denies oxygen. Denies smoking or alcohol at this time. REVIEW OF SYSTEMS: Twelve systems reviewed and negative. He actually did not have any symptoms related with a kidney stone, even though he has pretty significant left-sided hydronephrosis. PHYSICAL EXAMINATION: GENERAL: Elderly white male who is awake, alert, oriented and is not in any respiratory distress. He is able to give me a full account of his medical problem. VITAL SIGNS: Blood pressure is 128/72, pulse rate 58, temperature 36.9, oxygen saturation 97%. HEENT: Mucous membrane is moist. NECK: Supple. No jugular venous distention. CHEST: Bilaterally clear to auscultation. CARDIOVASCULAR: S1 and S2, regular. ABDOMEN: Soft, nontender. EXTREMITIES: Show no edema. NEUROLOGIC: Normal speech. Awake, alert, oriented, moving all 4 extremities. LABORATORY TEST: He is COVID positive incidental finding. Sodium 137, potassium 3.4, bicarbonate of 19, BUN 34, creatinine 2.66, hemoglobin A1c 7.7, calcium 8.7. Urine sediment done yesterday showed 1+ protein, 1+ blood. CT abdomen and pelvis reviewed and shows multiple kidney stone as well as left- sided hydronephrosis. There is also mention of a 2.1 cm complex cyst versus renal neoplasm. Creatinine was 2.99 yesterday on admission. We do not have any record from the past in our system. As per the patient, he does have CKD and has baseline creatinine around low 2s. 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 Lake in [place], [place]. He is here for abnormal kidney function as well as complications of kidney stone including left-sided hydronephrosis. 1. Acute renal failure and background chronic kidney disease. If we assume his baseline creatinine is around low 2s, then his admission creatinine of 2.99 does qualify as acute renal failure. Etiology is obstruction as well as some relative volume depletion in this setting. Kidney function did improve and creatinine was down to 2.6 this morning. I expect further improvement in the creatinine with a ureteric stent placement and further decompression. Continue to hold lisinopril for the time being. Potassium is slightly low and he can have potassium supplementation. No further workup is needed for acute renal failure. 2. Kidney stone, supposed to have left ureteric stent placement as well as further procedure as an outpatient. 3. Complex renal mass/cyst. Given that he is being followed by Urology for the kidney stone, I will defer to Urology for further comment regarding the complex renal cyst also. Thank you very much for the consult. Job ID: [id number] [facility] HOSPITALGiovanna
--- NOTE | 2021-12-31 16:01 | Hospitalist Progress Note ---
Date of Service December 31, 2021 Assessment & Plan (1) Ureteral stone with hydronephrosis: (2) [id number] kidney injury: (3) COVID-19: (4) Essential hypertension: (5) History of coronary artery disease: Plan: #. Left renal calculi with hydronephrosis CT A/P reviewed as below. No evidence of UTI in UA, hence no indication for ABx. Pt had lithotripsy left side with stent placement 2 weeks ago and was removed a week back [employer] at [facility]. CT A/P- 1. There are 3 obstructive left renal calculi as above. The largest stone measures 1.4 cm and this causes moderate to severe left left-sided hydronephrosis. 2. Numerous additional nonobstructing renal calculi are seen bilaterally. 3. A 2.1 cm indeterminant lesion arises from the interpolar left kidney. This could represent a complex cyst or less likely renal neoplasm. Correlate with any prior outside imaging studies to assess for stability. A nonemergent contrast- enhanced renal protocol CT or MRI could be considered for further evaluation. 4. The patient is status post aortobiiliac stent graft repair of an infrarenal abdominal aortic aneurysm. The residual aneurysm sac measures 4.9 x 5.4 cm. Analgesic prn, avoid nephrotoxics s/p left ureteral stent, f/u with urology office in 1-2 week to discuss further on stone management. d/w Urology, low suspicion for infection. Received perioperative Ancef. #. Left renal lesion- seen in CT. Will obtain records from [facility] for comparison, if unable to get, will get MRI renal protocol for evaluation. Urology on board and to evaluate further. Follow-up with urology as outpatient. #. ADAM on CKD- from obstructive calculi. Status post left renal stent. Avoid nephrotoxics. Hold lisinopril, no NSAIDs. Continue IV fluid. BMP in AM. Appreciate nephrology recommendation. #. Covid 19 infection- his symptoms of generalized non well being, fatigue etc is likely from COVID. No indication for treatment currently as no respiratory symptoms. #. Essential HTN- continue norvasc, coreg. Hold lisinopril due to ADAM #. DM-2- doesn't take insulin or tradjental anymore. On jardiance. On hold, on sliding scale insulin. #. H/o CAD s/p stenting- Stable, denies any chest pain. Continue brilinta, lipitor, coreg. #. H/o AAA s/p stenting DVT ppx- SCD Full code Admission and Anticipated Discharge Date Admission Date: December 30, 2021 Subjective Patient seen and examined at bedside as a follow-up of ureteral stone with hydronephrosis, acute on chronic kidney injury, COVID-19. Patient was lying in bed, on room air, NAD, no new acute events overnight, no respiratory distress, patient remains n.p.o. for urologic procedure later today. Patient denies any chest pain or palpitation or headache or dizziness. Patient denies other review of symptoms. Physical Exam Physical Exam: GENERAL: Alert and oriented x3. NAD, on RA. Obese. HEENT: No pallor, no icterus. Pupils equal, round and reactive to light. Oral mucosa moist. NECK: No JVD, no neck masses. HEART: S1 and S2 heard. Regular rate and rhythm. No murmur, no gallop. RESPIRATORY SYSTEM: Normal AP diameter. No accessory muscle use. No wheezing, no crackles. ABDOMEN: Soft, bowel sounds present, nontender, no distention. CENTRAL NERVOUS SYSTEM: No facial droop. Speech is clear. Obeys simple commands. Moves extremities. EXTREMITIES: No edema, no erythema seen. No CV angle tenderness. Results & Data Results & Data ([facility]) Vital Signs (Past 12 Hours) Vital Signs Temp Pulse Pulse Pulse Resp BP Pulse Ox 12/31/21 15:52 36.7 C 56 L 18 126/76 96 12/31/21 15:30 36.9 C 58 L 18 130/77 97 12/31/21 15:20 60 20 125/75 96 12/31/21 15:14 36.8 C 61 16 116/70 94 12/31/21 13:55 36.9 C 58 L 18 128/72 97 12/31/21 08:55 65 124/72 12/31/21 07:46 37.1 C 61 18 101/53 L 96
--- NOTE | 2021-12-31 16:26 | Discharge Summary ---
Date of Service December 31, 2021 Admission HPI Per Admitting Provider 76 year old male with h/o HTN, DM, nephrolithiasis (2019 and 2 weeks back), CAD s/p stenting who presented to the ED not feeling well as well as abnormal labs. History taken from patient and at bedside. Patient usually follows [facility] for his care and new to our system. States he had left sided nephrolithiasis for which he had lithotripsy with stenting 2 weeks back and stent was removed a week ago last Monday. He asked his PCP for labs and got them drawn last Monday. He was found to have elevated creatinine and his PCP recommended him to come to our ED for further evaluation. States his usual Cr is around 2.2 or something like that but he does not remember the OP lab value. His Cr currently is 2.99 here. Also found to have left sided ureteral calculi with mod-severe hydronephrosis, largest size being 1.4 cm. States he has been feeling weak, tired, no energy and feels sleepy. Also had weigh loss of 30lbs over the past month or so. He also tested positive for COVID in the ED but no hypoxia, chest pain, shortness of breath or other symptoms. He states he never gets bad pain with his kidney stones. He does not smoke or drink alcohol. Admission Exam Per Admitting Provider General: Sitting comfortably in bed, not in distress, on room air HEENT: EOMI, CHAYA, MMM Chest: Clear breath sounds bilaterally, no wheezes or crackles CVS: Regular rate and rhythm, normal heart sounds, no murmur Abdomen: Soft, non tender, not distended, normal bowel sounds No CVA tenderness Neuro: Awake, alert, oriented, conversing well, non focal Extremities: No cyanosis, clubbing or edema Principal Diagnosis Left ureteral stone with hydronephrosis Acute on chronic kidney injury COVID-19 infection Discharge Exam Refer to today's progress note. Discharge Data Allergies Allergy/AdvReac Type Severity Reaction Status Date / Time shrimp AdvReac Severe vomiting Unverified 12/30/21 16:07 and diarrhea Consultations 12/30/21 18:03 ED Decision to Admit Stat 12/30/21 18:15 Consult Urology Routine 12/30/21 18:26 Consult Health Information Management Stat 12/30/21 21:14 Consult Nephrology Routine Procedures Performed Operation Date: 12/31/21 11:10 Actual Procedures p Cystoscopy Left Retrograde Pyelogram with left ureteral Stent Placement(Left) - Yovani Saenz MD Ordered Studies 12/30/21 12:59 CT abd pelvis wo con Stat 12/31/21 [place] retrograde includes kub Routine Hospital Course (1) Ureteral stone with hydronephrosis: (2) Hosaj-fh-[id number] kidney injury: (3) COVID-19: (4) Essential hypertension: (5) History of coronary artery disease: #. Left renal calculi with hydronephrosis CT A/P reviewed as below. No evidence of UTI in UA, hence no indication for ABx. 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 CT A/P- 1. There are 3 obstructive left renal calculi as above. The largest stone measures 1.4 cm and this causes moderate to severe left left-sided hydronephrosis. 2. Numerous additional nonobstructing renal calculi are seen bilaterally. 3. A 2.1 cm indeterminant lesion arises from the interpolar left kidney. This could represent a complex cyst or less likely renal neoplasm. Correlate with any prior outside imaging studies to assess for stability. A nonemergent contrast- enhanced renal protocol CT or MRI could be considered for further evaluation. 4. The patient is status post aortobiiliac stent graft repair of an infrarenal abdominal aortic aneurysm. The residual aneurysm sac measures 4.9 x 5.4 cm. Analgesic prn, avoid nephrotoxics s/p left ureteral stent, f/u with urology office in 1-2 week to discuss further on stone management. d/w Urology, low suspicion for infection. Received perioperative Ancef. #. Left renal lesion- seen in CT. Will obtain records from [facility] for comparison, if unable to get, will get MRI renal protocol for evaluation. Urology on board and to evaluate further. Follow-up with urology as outpatient. #. ADAM on CKD- from obstructive calculi with some component of prerenal ADAM. Status post left renal stent. Avoid nephrotoxics. Hold lisinopril, no NSAIDs. Continue IV fluid. BMP in AM. Appreciate nephrology recommendation. #. Covid 19 infection- his symptoms of generalized non well being, fatigue etc is likely from COVID. No indication for treatment currently as no respiratory symptoms. #. Essential HTN- continue norvasc, coreg. Hold lisinopril due to ADAM #. DM-2- doesn't take insulin or tradjental anymore. On jardiance. On hold, on sliding scale insulin. #. H/o CAD s/p stenting- Stable, denies any chest pain. Continue brilinta, lipitor, coreg. #. H/o AAA s/p stenting DVT ppx- SCD Full code Patient was being managed for the above, was being observed for his COVID-19 infection and was on IV fluid for his ADAM over CKD. His electrolytes were being monitored and his hydrochlorothiazide was held. Patient insisted on going, would have benefited from staying 1 more day and confirming that the renal labs are downtrending towards normal. He would have got some IV fluids by then as well. Patient decided to leave AMA despite the risks of leaving AMA explained including worsening kidney injury and . Patient advised to hold hydrochlorothiazide upon discharge and get blood work CBC and BMP in 3 days upon discharge and have the results forwarded to his PCP or kidney doctor. Total Time Total Time Spent Total Time Spent (In Minutes): 45 Discharge Plan Discharge Items Patient Disposition: Against Medical Advice Reason For Visit: ADAM, RENAL CALCULI Activity: Resume your previous activity Non-emergency contact: Primary Care Provider Follow-up/Referrals: Filiberto Hernandes [Primary Care Provider] - Pending Studies at Discharge: No Stand-Alone Forms: My [employer], Smoking Cessation Medications and DC Order Prescriptions: Continued atorvastatin 40 mg tablet 40 mg PO DAILY RF: 0 carvedilol 6.25 mg tablet 6.25 mg PO BID RF: 0 amlodipine 5 mg tablet 5 mg PO DAILY RF: 0 tamsulosin 0.4 mg capsule 0.4 mg PO BID RF: 0 Brilinta 90 mg tablet 90 mg PO BID RF: 0 Baqsimi 3 mg/actuation spray,non-aerosol 3 mg INTRANASAL UD RF: 0 Ozempic 1 mg/dose (4 mg/3 mL) pen injector 1 mg SUBCUT WK RF: 0 ascorbic acid (vitamin C) 1,000 mg Tablet 1 g PO DAILY RF: 0 cholecalciferol (vitamin D3) 50 mcg (2,000 unit) Tablet 50 mcg PO DAILY RF: 0 Jardiance 25 mg tablet 25 mg PO DAILY RF: 0 Discontinued hydrochlorothiazide 25 mg tablet 25 mg QAM RF: 0 Discharge Orders: Left Against Medical Advice (Routine); Ordered 12/31/21 Ordered By: Miriam Steele/Other Patient Handouts: Managing Type 2 Diabetes Admission Data Admit Date/Time: 12/30/21 18:21 Attending Provider: Miriam Bunch Admit Provider: Jamar Nascimento Primary Care Provider: Filiberto Hernandes Other Providers: Jamar Nascimento ; Ranjeet Horton ; Leodan Pulido
--- NOTE | 2021-12-31 17:53 | Electrocardiogram Report ---
Test Reason : Blood Pressure : / mmHG Vent. Rate : 064 BPM Atrial Rate : 064 BPM P-R Int : 142 ms QRS Dur : 076 ms QT Int : 416 ms P-R-T Axes : -01 003 010 degrees QTc Int : 429 ms Normal sinus rhythm Normal ECG No previous ECGs available Confirmed by Ranjeet Calhoun ([id number]) on 12/31/2021 5:53:20 PM Referred By: Filiberto Hernandes Confirmed By:Juan aClhoun
== END 2021-12-31 17:40 | disposition left against medical advice (07) | DRG 659 ==
LOC: ED 11:19 → SUATTDRO 18:21 → 3N 18:21

== ENCOUNTER 2025-03-26 16:40 | Inpatient (IN) ==
[2025-03-26 17:11] LABS: Base Excess VBG -7.9 mEq/L; HCO3 VBG 18 mmol/L; Oxygen Saturation VBG 75.7 %; PCO2 VBG 36 mmHg (38-50); PO2 VBG 42 mmHg; pH VBG 7.30 (7.36-7.41)
[2025-03-26 17:15] LABS: Hematocrit (blood only) 34.3 % (42.0-52.0); Hemoglobin 11.7 g/dl (14.0-18.0); Immature Granulocytes # (auto) 0.04 K/uL (0.01-0.20); Immature Granulocytes % (auto) 0.4 %; Mean Corpuscular Hemoglobin 31.1 pg (25.0-34.0); Mean Corpuscular Volume 91.2 fL (80.0-100.0); Platelet Count 182 K/uL (130-400); RDW Standard Deviation 42.5 fL (36.4-46.3); Red Blood Count 3.76 M/uL (4.70-6.10); White Blood Count 9.85 K/ul (4.8-10.8)
--- NOTE | 2025-03-26 17:22 | XRay Report ---
Clinical History: Altered mental status Technique: A frontal view of the chest was obtained Findings: There are no confluent pulmonary infiltrates. The heart size is at the upper limit of normal. No pleural effusion or pneumothorax is seen. There is no definite pulmonary nodule. No fracture is noted. No foreign body is seen Impression: No active disease Electronically signed by Finn Montesinos 03-26-2025 5:21 PM
[2025-03-26 17:33] LABS: Alanine Aminotransferase 18.0 U/L (7-52); Alkaline Phosphatase 74.0 U/L (34-104); Anion Gap 7.0 (3-11); Bilirubin,Total 0.3 mg/dl (0.2-1.0); Blood Urea Nitrogen 52.0 mg/dl (6-23); Calcium 8.6 mg/dl (8.6-10.3); Carbon Dioxide 20.0 mmol/L (21-32); Chloride 114.0 mmol/L (98-107); Creatinine Clr Calc Pharmacy 17.3 ml/min; Glucose 200.0 mg/dl (70-99(Fasting)); Lipase 184.0 U/L (11-82); Magnesium 2.1 mg/dl (1.7-2.4); Potassium 4.3 mmol/L (3.5-5.1); Sodium 141.0 mmol/L (136-145); Total Protein 6.1 gm/dl (6.0-8.3)
--- NOTE | 2025-03-26 17:34 | CT Scan Report ---
Clinical History: Altered mental status Technique: Axial computed tomography images were obtained of the brain without intravenous contrast. Findings: There is diffuse cerebral atrophy, within expected limits for the patient's age. Areas of decreased attenuation are seen within the periventricular white matter, likely representing chronic small vessel ischemic disease. There is a small old infarct of the left frontal lobe There is no definite sign of acute infarction. No intracranial hemorrhage is evident. No definite mass lesion is seen on this noncontrast examination. There is no midline shift or other form of herniation. No hydrocephalus is seen. No fracture is identified. The orbits and the visualized paranasal sinuses appear unremarkable. The mastoid air cells appear clear. Impression: 1. Cerebral atrophy and chronic small vessel ischemic disease 2. 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
--- NOTE | 2025-03-26 17:59 | CT Scan Report ---
Technique: Axial computed tomography images were obtained of the abdomen and pelvis without intravenous contrast. Findings: The liver is overall of normal size, attenuation, and contour with no sign of cirrhosis or significant fatty infiltration. No definite liver mass lesion is seen on this noncontrast study. The gallbladder appears unremarkable. No bile duct dilatation is noted. The spleen is of normal size. No focal splenic lesion is evident. The pancreas appears normal with no sign of acute or chronic pancreatitis and no mass lesion noted. The pancreatic duct is of normal caliber. The adrenal glands appear unremarkable. There is a 2 mm right renal calculus as well as a 1-2 mm calculus. There is no hydronephrosis or perinephric stranding. There is a 2.5 cm hyperdense right renal lesion and there is a 2.3 cm hyperdense left renal lesion. There are bilateral renal cysts, measuring up to 3.6 cm. There is an abdominal aortic aneurysm containing a bifurcating endoluminal graft, measuring up to 5.4 cm anteroposterior. No abdominal adenopathy is seen. The stomach appears normal. There is no sign of small bowel obstruction. There is mild diverticulosis without evidence of diverticulitis. The appendix appears normal. No free intraperitoneal fluid or air is identified. There is a 9 mm bladder calculus. No obvious bladder mass lesion is evident. The iliac arteries are of normal caliber. No pelvic adenopathy is noted. The prostate is enlarged measuring 4.8 cm. The lungs bases appear clear. There is coronary atherosclerosis Mild thoracolumbar degenerative disc disease is seen. No fracture is identified. No focal osseous lesion is seen Impression: 1. Bilateral hyperdense renal lesions, indeterminate in nature but likely proteinaceous or hemorrhagic cysts. A follow-up renal protocol abdominal CT with and without contrast could be obtained 2. Bilateral renal cysts and right renal calculi 3. Abdominal aortic aneurysm containing an endoluminal graft 4. 9 mm bladder calculus 5. Enlarged prostate. Correlation with PSA levels may be useful 6. Mild diverticulosis without evidence of diverticulitis ACT 112: Positive. There are findings on this exam that require communication between the performing entity and the patient following Patient Test Result Information Act ([place] ACT 112) guidelines. Electronically signed by Finn Montesinos 03-26-2025 5:58 PM
[2025-03-26 18:44] LABS: Appearance Urine Clear (Clear); Bacteria Urine Automated None Seen (None Seen); Epithelial Cell Urine Auto 0-2 /hpf (0-2); Glucose Urine UA 3+ (Negative); RBC Urine Automated 0-2 /hpf (0-2); WBC Urine Automated 0-5 /hpf (0-5)
--- NOTE | 2025-03-26 19:08 | History & Physical Report ---
Date of Service March 26, 2025 Assessment & Plan (1) Acute metabolic encephalopathy: (2) CKD (chronic kidney disease), stage IV: (3) Dementia: (4) Diabetes mellitus, type 2: (5) Frontal lobe dementia: (6) Myocardial Infarction: Plan 80 yo male with pmhx of CKD stage IV, CAD, hypertension, peripheral vascular disease, renal artery stenosis, type 2 diabetes, known frontal lobe infarcts with dementia and baseline A&O x 1 who presents from home for worsening confusion and abnormal labs. #Metabolic Encephalopathy #Frontal Lobe Moderate Dementia -patient has chronic worsening of mental status -multifactorial from dementia, kidney disease, delirium -discussed with strong liklihood of delirium -patient appears close to baseline Plan: -delirium precautions -reduce melatonin to 3mg at nighttime scheduled from 30 mg -continue fluoxetine -hold gabapentin, prevagen #CKD Stage IV #Renal Artery Stenosis -patient has what appears to be gradual progression of disease -per outpatient broadcast engineer note 02/27/2025 patient will likely need renal replacement therapy soon -no asterixis, no pruritis, no pitting edema, overly dry skin, excessive confusion not explainable by other pathologies -still makes urine - would like admission to be seen by nephrology due to her discussion with PCP -patient appears close to baseline Plan: -continue lisinopril, farxiga given GFR is the same as prior -hold bumex for now -gentle hydration for high risk for delirium and mild increase in creatinine -continue sodium bicarbonate -check mg, phosphate, urine albumin/creatinine ratio ordered to complete metabolic workup -HIV/Hep C ordered to begin process prior to AV fistula placement -nephrology consult, appreciate recs (order placed) -will likely need AV fistula planning in near future -admit for observation, possible discharge tomorrow #CAD #PVD -hx of 4 stents placed in past #DM Type 2 -SSI and basal insulin -pharmacy consult placed given significant insulin needs a home #Enlarged Prostate -PSA ordered -incidentals: renal cysts, bladder calculus, diverticulosis I spent a total of 80 minutes in direct patient care, including [id number] time with the patient and/or family, reviewing medical records, ordering and reviewing diagnostic tests, and coordinating care with other healthcare providers. This time includes: history taking, physical examination, medical decision making, counseling, ECG interpretation, imaging interpretation, lab interpretation, orders, and education, excluding time spent in the performance of separately billed services. History of Present Illness Chief Complaint: -confusion, abnormal labs Primary Care Provider: Filiberto Hernandes 80 yo male with pmhx of CKD stage IV, CAD, hypertension, peripheral vascular disease, renal artery stenosis, type 2 diabetes, known frontal lobe infarcts with dementia and baseline A&O x 1 who presents from home for worsening confusion and abnormal labs. Seen in ED 2 days ago for similar concerns, consult by medicine service in collaboration with nephrology recommending outpatient follow up for progressing CKD. In the ED, creatinine around same as 2 days ago, admitted to medicine for further workup. Patient seen and examined at bedside. present as well. States over the past 6 months he has had progressive, worsening confusion. Yesterday was a bad day, today good day, waxes and wanes. Per patient yesterday felt off, today feels fine. No nausea, vomiting, diarrhea, chest pain, SOB, other symptoms. Makes urine daily. Went to PCP visit who said patient should go to ED for evaluation by a broadcast engineer for renal failure. No alcohol use, no drug use, no tobacco use, full code per discussion with , willing to do dialysis if necessary. Allergies Allergy/AdvReac Type Severity Reaction Status Date / Time shrimp AdvReac Severe Vomiting, Verified 03/24/25 13:32 diarrhea semaglutide [From Ozempic] AdvReac Mild "Makes me Verified 03/24/25 13:32 feel awful" Home Medications Medication Instructions Recorded Confirmed Type atorvastatin 40 mg tablet 40 mg PO QPM 12/30/21 03/26/25 History melatonin 10 mg capsule 30 mg PO HS PRN Sleep 10/18/22 03/26/25 History Prevagen 1 tab PO QPM 01/29/25 03/26/25 History fluoxetine 20 mg tablet 20 mg PO QPM 01/29/25 03/26/25 History gabapentin 300 mg capsule 300 mg PO QPM 01/29/25 03/26/25 History glipizide 5 mg tablet 5 mg PO QPM 01/29/25 03/26/25 History insulin glargine 100 unit/mL (3 35 unit subcut QPM 01/29/25 03/26/25 History mL) subcutaneous pen (Lantus Solostar U-100 Insulin) metoprolol succinate 100 mg 100 mg PO QPM 01/29/25 03/26/25 History tablet,extended release 24 hr amlodipine 5 mg tablet 10 mg PO QPM 03/24/25 03/26/25 History bumetanide 1 mg tablet 1 mg PO QPM 03/24/25 03/26/25 History empagliflozin 10 mg tablet 10 mg PO DAILY #30 tabs 03/24/25 03/26/25 Rx (Jardiance) lisinopril 10 mg tablet 10 mg PO QPM 03/24/25 03/26/25 History sodium bicarbonate 650 mg tablet 1,300 mg PO QPM 03/24/25 03/26/25 History Past Med/Surg History Problem List (Updated 03/24/25 @ 18:04 by Annamarie Velázquez PA-C) Acute metabolic encephalopathy CKD (chronic kidney disease), stage IV Accidental overdose (Acute) Dementia (Acute) Constipation Diarrhea AAA (abdominal aortic aneurysm) COVID-19 (Acute) Hydronephrosis (Acute) Calculus, kidney (Acute) Ureteral stone with hydronephrosis Essential hypertension History of coronary artery disease Medical History (Updated 03/24/25 @ 18:04 by Annamarie Velázquez PA-C) Frontal lobe dementia Anemia History of kidney stones Diabetes mellitus, type 2 Hypertension Hyperlipidemia Myocardial Infarction ~2019 > stents x4 Follows with [facility] History of COVID-19 Dx 12/30/21 at [facility], [place]- IDNow positive (cough, fatigue a time > resolved) Subsequently, preop Covid PCR done 02/11/22 was negative [id number] kidney injury [place] r/t obstructive calculi S/P renal stent Kidney stone CKD (chronic kidney disease) Surgical History History of cystoscopy Cystoscopy, left ureteroscopy (12/31/21) at [facility] [place] Cystoscopy, Ureteronephroscopy, Retrograde Pyelogram, Laser Lithotripsy, Stone Basket Extraction, Left Exchange of Stent Catheter (02/16/22): LMA igel #5 at [facility] [place]. History of colonoscopy History of tooth extraction Upper denture History of umbilical hernia repair History of AAA (abdominal aortic aneurysm) repair @ [facility] (~2017) History of heart artery stent x4 (~2019) History of cardiac cath @ [facility] H/O lithotripsy x3 Family History Other No family history of adverse response to anesthesia Social History Smoking Status: Former smoker Second Hand Exposure: No; Do You Dip or Chew Tobacco: No; Hx Alcohol Use: Yes Alcohol type: beer Hx Substance Use: No Preferred Language: [place] Verdean Communication Ability: Effective Mds Nurse Required: No Beliefs That Will Affect Care: None Current Living Situation: Spouse Feels Safe at Home: Yes Assistive Devices: Denture - Upper and Glasses Review of Systems Review of Systems: -negative unless listed above Physical Exam Physical Exam: Gen: A&O 2 NAD HEENT: NCAT, EOMI, not icteric. External ears normal. No rhinorrhea. Moist mucous membranes. Neck: Supple, full range of motion, no observable masses, No meningeal sign. Lungs: No Respiratory distress. CV: RRR, no edema. Abdomen: Soft, nondistended, No rebound tenderness. MSK: No joint swelling, no redness. No asterixis. No pitting edema. Skin not overly dry. Skin: No rashes, petechiae, lesions. Normal color per patient. Neuro: Normal Gait, Grossly intact. Psych: Appropriate for situation. Results & Data Results & Data Vital Signs (Past 12 Hours) Vital Signs Temp Pulse Resp BP Pulse Ox O2 Del Method 03/26/25 18:04 162/80 H 03/26/25 18:03 61 21 03/26/25 18:01 60 03/26/25 17:45 58 L 21 97 03/26/25 17:03 Room Air 03/26/25 16:42 36.4 C L 63 18 132/73 96 Room Air Laboratory Results -personally reviewed, pH indicative of mild metabolic acidosis with respiratory alkalosis, lipase chronically elevated and asymptomatic, UA indicative of CKD with protein/glucose, baseline creatinine around 3.8, was 3 in October indicative of worsening disease Code Status & VTE Plan Code Status -full code per discussion with VTE Prophylaxis Plan VTE Prophylaxis will be ordered: Yes (3) Dementia Dementia severity: unspecified severity Dementia type: unspecified type
[2025-03-26] MEDS ORDERED: DEXTROSE 50% 50 ML SYRINGE IV PRN (19:25)
[2025-03-26] MEDS ORDERED: CARBOHYDRATES FOR HYPOGLYCEMIA PO PRN (19:25)
[2025-03-26] MEDS ORDERED: GLUCAGON FOR INJ 1 MG VIAL SQ PRN (19:25)
[2025-03-26] MEDS ORDERED: PHARMACY GLYCEMIC MGMT CONSULT PRN (19:25)
[2025-03-26] MEDS ORDERED: GLUCOSE 40% GEL 15 GM TUBE PO PRN (19:25)
[2025-03-26] MEDS ORDERED: GLUCOSE 10 TAB/TUBE PO PRN (19:25)
[2025-03-26] MEDS ORDERED: ONDANSETRON INJ 2 MG/ML 2 ML VIAL IV PRN (21:04)
[2025-03-26] MEDS ORDERED: NON-FORMULARY MEDICATION (Insulin Glargine [Lantus Solostar U-100 Insulin] 100 unit/mL (3 SQ SCH (21:04)
[2025-03-26] MEDS ORDERED: ACETAMINOPHEN 325 MG TAB PO PRN (21:04)
[2025-03-26] MEDS ORDERED: POLYETHYLENE (MIRALAX) 17 GM PACK PO PRN (21:04)
[2025-03-26] MEDS: LACTATED RINGER'S 1,000 ML IV SCH (21:29)
[2025-03-26] MEDS: INSULIN ASPART PER UNIT CHARGE SC SCH (21:30)
[2025-03-26] MEDS: ATORVASTATIN 40 MG TAB PO SCH (21:34)
[2025-03-26] MEDS: METOPROLOL SUCC 50MG EXT REL TAB PO SCH (21:34)
[2025-03-26 21:35] LABS: Protein Creatinine Ratio Urine 3.0 (0-0.2); Total Protein Urine Random 250.7 mg/dl (0-11.9)
[2025-03-26] MEDS: SODIUM BICARBONATE 650 MG TAB PO SCH (21:35)
[2025-03-26] MEDS: MELATONIN 3 MG TAB PO SCH (21:38)
[2025-03-26] MEDS: LANTUS PER UNIT CHARGE SC SCH (21:43)
[2025-03-26] MEDS: HEPARIN SOD 5,000 UNIT/0.5 ML VIAL SQ SCH (21:54)
--- NOTE | 2025-03-26 23:41 | Emergency Department Note ---
History of Present Illness General Chief Complaint: Abnormal Labs/Diagnostic Testing Stated Complaint: KIDNEY Time Seen by Provider: 03/26/25 16:49 Source: patient and family ( at bedside) History of Present Illness Provider Complaint: + abnormal lab Returns today for: + called because of abnormal lab/test Description of abnormal result: Elevated creatinine Associated symptoms: + other (Increased confusion and weakness per ); no fever, no shortness of breath, no rash, no malaise or no abdominal pain Home Medications Medication Instructions Recorded Confirmed Type atorvastatin 40 mg tablet 40 mg PO QPM 12/30/21 03/26/25 History melatonin 10 mg capsule 30 mg PO HS PRN Sleep 10/18/22 03/26/25 History Prevagen 1 tab PO QPM 01/29/25 03/26/25 History fluoxetine 20 mg tablet 20 mg PO QPM 01/29/25 03/26/25 History gabapentin 300 mg capsule 300 mg PO QPM 01/29/25 03/26/25 History glipizide 5 mg tablet 5 mg PO QPM 01/29/25 03/26/25 History insulin glargine 100 unit/mL (3 35 unit subcut QPM 01/29/25 03/26/25 History mL) subcutaneous pen (Lantus Solostar U-100 Insulin) metoprolol succinate 100 mg 100 mg PO QPM 01/29/25 03/26/25 History tablet,extended release 24 hr amlodipine 5 mg tablet 10 mg PO QPM 03/24/25 03/26/25 History bumetanide 1 mg tablet 1 mg PO QPM 03/24/25 03/26/25 History empagliflozin 10 mg tablet 10 mg PO DAILY #30 tabs 03/24/25 03/26/25 Rx (Jardiance) lisinopril 10 mg tablet 10 mg PO QPM 03/24/25 03/26/25 History sodium bicarbonate 650 mg tablet 1,300 mg PO QPM 03/24/25 03/26/25 History Allergies Allergy/AdvReac Type Severity Reaction Status Date / Time shrimp AdvReac Severe Vomiting, Verified 03/24/25 13:32 diarrhea semaglutide [From Ozempic] AdvReac Mild "Makes me Verified 03/24/25 13:32 feel awful" Past Med/Surg History Problem List (Updated 03/26/25 @ 23:48 by Jonny Webb MD) Acute kidney injury superimposed on CKD (Acute) Acute metabolic encephalopathy CKD (chronic kidney disease), stage IV Accidental overdose (Acute) Dementia (Acute) Constipation Diarrhea AAA (abdominal aortic aneurysm) COVID-19 (Acute) Hydronephrosis (Acute) Calculus, kidney (Acute) Ureteral stone with hydronephrosis Essential hypertension History of coronary artery disease Medical History Frontal lobe dementia Anemia History of kidney stones Diabetes mellitus, type 2 Hypertension Hyperlipidemia Myocardial Infarction ~2019 > stents x4 Follows with [facility] cardiology History of COVID-19 Dx 12/30/21 at [facility]- IDNow positive (cough, fatigue a time > resolved) Subsequently, preop Covid PCR done 02/11/22 was negative [id number] kidney injury [place] r/t obstructive calculi S/P renal stent Kidney stone CKD (chronic kidney disease) Surgical History History of cystoscopy Cystoscopy, left ureteroscopy (12/31/21) at [facility] Cystoscopy, Ureteronephroscopy, Retrograde Pyelogram, Laser Lithotripsy, Stone Basket Extraction, Left Exchange of Stent Catheter (02/16/22): LMA igel #5 at [facility]. History of colonoscopy History of tooth extraction Upper denture History of umbilical hernia repair History of AAA (abdominal aortic aneurysm) repair @ [facility] (~2018) History of heart artery stent x4 (~2019) History of cardiac cath @ [facility] H/O lithotripsy x3 Family History Other No family history of adverse response to anesthesia Social History Smoking Status: Never smoker Second Hand Exposure: No; Do You Dip or Chew Tobacco: No; Tobacco Cessation Education Requested by Patient: No Hx Alcohol Use: No Hx Substance Use: No Preferred Language: Irish Communication Ability: Effective Ship[employer] Pain[employer] Required: No Beliefs That Will Affect Care: None Current Living Situation: Spouse Current Living Situation Comment: and occasionally his son stays with him Other Information That Helps Us Care for You: No Feels Safe at Home: Yes Safety Concerns: Feels Safe At This Time Assistive Devices: Denture - Upper and Glasses Assistive Devices Comment: upper partial Physical Exam 2 Vital Signs: Vital Signs - 24 hr 03/26/25 16:42 03/26/25 17:03 03/26/25 17:45 Temperature 36.4 C L Temperature Source Temporal Artery Sc an Pulse Rate 63 58 L Pulse Rate from Sp O2 Sensor 58 L Respiratory Rate 18 21 Blood Pressure 132/73 Blood Pressure Cele n 92 Pulse Oximetry 96 97 Oxygen Delivery Me thod Room Air Room Air Sepsis New/Unexpla ined Change in Men cyrus Status No Sepsis Action Take n by Nursing No Action Required 03/26/25 18:01 03/26/25 18:03 03/26/25 18:04 Temperature Temperature Source Pulse Rate 60 61 Pulse Rate from Sp O2 Sensor Respiratory Rate 21 Blood Pressure 162/80 H Blood Pressure Cele n 107 Pulse Oximetry Oxygen Delivery Me thod Sepsis New/Unexpla ined Change in Men cyrus Status Sepsis Action Take n by Nursing 03/26/25 18:30 Temperature Temperature Source Pulse Rate 57 L Pulse Rate from Sp O2 Sensor Respiratory Rate 20 Blood Pressure 153/78 H Blood Pressure Cele n 127 Pulse Oximetry 95 Oxygen Delivery Me thod Room Air Sepsis New/Unexpla ined Change in Men cyrus Status Sepsis Action Take n by Nursing Physical Exam: Physical Exam HENT: Exam performed. - Head: Normocephalic and atraumatic. EYES: Conjunctivae and EOM are normal. Right eye exhibits no discharge. Left eye exhibits no discharge. No scleral icterus. NECK: Normal range of motion. Neck supple. No JVD present. CV: Normal rate, regular rhythm, normal heart sounds and intact distal pulses. There is no peripheral edema. Palpable radial pulses bue. PULM/CHEST: Effort normal and breath sounds normal. No respiratory distress. No stridor. no wheezes. no rales. ABD: The abdomen is soft. There is no tenderness. NEURO: Motor and sensation grossly intact. Course Course 1648: The patient was evaluated in room A11. A complete history and physical exam was performed Cardiac monitoring: An order was placed for continuous cardiac monitoring. The monitor shows a rate of 60 with sinus rhythm interpreted by me Medical records reviewed. Patient's creatinine on March 24, 2025 was 4.01. Creatinine on January 29 was 3.54. Patient was seen in the emergency department and evaluated for admission on March 24, 2025. Reportedly the patient has history of CKD stage IV dementia and asked that he took too much Benadryl. Patient was seen by the hospitalist and determined to be safe for discharge home. 1835: Vital signs stable. Labs showed creatinine of 4.13. Imaging is unremarkable. Discussed case with Dr. Lyndsay Zendejas hospitalist and he will evaluate the patient for admission. Administered Medications Amlodipine Besylate (Amlodipine Besylate 5 Mg Tab) 10 mg PO QPM AMANDA Stop: 04/25/25 21:03 Last Admin: 03/26/25 21:35 Dose: 10 mg Documented By: JACOB Atorvastatin Calcium (Atorvastatin 40 Mg Tab) 40 mg PO QPM AMANDA Stop: 04/25/25 21:03 Last Admin: 03/26/25 21:34 Dose: 40 mg Documented By: JACOB Fluoxetine HCl (Fluoxetine Hcl 20 Mg Cap) 20 mg PO QPM AMANDA Stop: 04/25/25 21:03 Last Admin: 03/26/25 21:35 Dose: 20 mg Documented By: JACOB Heparin Sodium (Porcine) (Heparin Sod 5,000 Unit/0.5 Ml Vial) 5,000 units SQ Q8 AMANDA Stop: 04/25/25 21:59 Last Admin: 03/26/25 21:54 Dose: 5,000 units Documented By: JACOB Lactated Ringer's (Lr) 1,000 mls @ 80 mls/hr IV .[id number] AMANDA Stop: 03/27/25 07:00 Last Admin: 03/26/25 21:29 Dose: 80 mls/hr Documented By: JACOB Insulin Aspart (Insulin Aspart Per Unit Charge) 0 units SC ACHS AMANDA Stop: 04/25/25 20:59 Last Admin: 03/26/25 21:30 Dose: 1 units Documented By: JACOB Co-signed By: NUHA Lisinopril (Lisinopril 10 Mg Tab) 10 mg PO QPM AMANDA Stop: 04/25/25 21:03 Last Admin: 03/26/25 21:34 Dose: 10 mg Documented By: JACOB Melatonin (Melatonin 3 Mg Tab) 3 mg PO HS AMANDA Stop: 04/25/25 21:03 Last Admin: 03/26/25 21:38 Dose: 3 mg Documented By: JACOB Metoprolol Succinate (Metoprolol Succ 50mg Ext Rel Tab) 100 mg PO QPM AMANDA Stop: 04/25/25 21:03 Last Admin: 03/26/25 21:34 Dose: 100 mg Documented By: JACOB Miscellaneous (Jardiance - Order Awaiting Action) 1 each N/A QS AMANDA Stop: 04/26/25 00:00 Last Admin: 03/26/25 22:58 Dose: Not Given Documented By: JACOB Sodium Bicarbonate (Sodium Bicarbonate 650 Mg Tab) 1,300 mg PO QPM AMANDA Stop: 04/25/25 21:03 Last Admin: 03/26/25 21:35 Dose: 1,300 mg Documented By: JACOB Discontinued Medications Insulin Glargine (Lantus Per Unit Charge) 0 units SC HS AMANDA; Protocol Stop: 03/26/25 21:01 Last Admin: 03/26/25 21:43 Dose: Not Given Documented By: JACOB Medical Decision Making Medical Records Attestation: I reviewed the patient's medical records. Medical records reviewed. Patient's creatinine on March 24, 2025 was 4.01. Creatinine on January 29 was 3.54. Patient was seen in the emergency department and evaluated for admission on March 24, 2025. Reportedly the patient has history of CKD stage IV dementia and asked that he took too much Benadryl. Patient was seen by the hospitalist and determined to be safe for discharge home. Laboratory Data Attestation: I reviewed the patient's lab results. 03/26/25 16:55 03/26/25 16:55 Lab Results 03/26/25 03/26/25 Range/Units 16:55 18:00 WBC 9.85 (4.8-10.8) K/ul RBC 3.76 L (4.70-6.10) M/uL Hgb 11.7 L (14.0-18.0) g/dl Hct 34.3 L (42.0-52.0) % MCV 91.2 (80.0-100.0) fL MCH 31.1 (25.0-34.0) pg MCHC 34.1 (32.0-36.0) g/dL RDW Std Deviation 42.5 (36.4-46.3) fL RDW Coeff of Marisa 12.8 (11.5-14.5) % Plt Count 182 (130-400) K/uL MPV 10.5 (9.4-12.4) fL Immature Gran % (Auto) 0.4 % Neut % (Auto) 70.2 % Lymph % (Auto) 16.0 % [place] % (Auto) 8.4 % Eos % (Auto) 4.3 % Baso % (Auto) 0.7 % Neut # (Auto) 6.91 H (1.40-6.50) K/uL Lymph # (Auto) 1.58 (1.20-3.40) K/uL [place] # (Auto) 0.83 H (0.11-0.59) K/uL Eos # (Auto) 0.42 (0.00-0.50) K/uL Baso # (Auto) 0.07 (0.00-0.20) K/uL Immature Gran # (Auto) 0.04 (0.01-0.20) K/uL VBG pH 7.30 L (7.36-7.41) VBG pCO2 36 L (38-50) mmHg VBG pO2 42 mmHg VBG HCO3 18 mmol/L VBG O2 Saturation 75.7 % VBG Base Excess -7.9 mEq/L Sodium 141 (136-145) mmol/L Potassium 4.3 (3.5-5.1) mmol/L Chloride 114 H (98-107) mmol/L Carbon Dioxide 20 L (21-32) mmol/L Anion Gap 7 (3-11) BUN 52 H (6-23) mg/dl Creatinine 4.13 H (0.6-1.4) mg/dl Est Cr Clr Drug Dosing 17.3 ml/min eGFR 14.05 BUN/Creatinine Ratio 12.6 (10-20) Glucose 200 H (70-99(Fasting)) mg/dl Calcium 8.6 (8.6-10.3) mg/dl Phosphorus 4.6 (2.5-4.9) mg/dl Magnesium 2.1 (1.7-2.4) mg/dl Total Bilirubin 0.3 (0.2-1.0) mg/dl Direct Bilirubin 0.1 (0-0.2) mg/dl AST 20 (13-39) U/L ALT 18 (7-52) U/L Alkaline Phosphatase 74 (34-104) U/L Ammonia 40.0 (18-72) umol/L Total Protein 6.1 (6.0-8.3) gm/dl Albumin 3.6 (3.4-5.0) gm/dl Lipase 184 H (11-82) U/L Urine Color Yellow Urine Appearance Clear (Clear) Urine pH 5.0 (4.5-7.5) Ur Specific Portal 1.017 (1.000-1.030) Urine Protein 3+ H (Negative) Urine Glucose (UA) 3+ H (Negative) Urine Ketones Negative (Negative) Urine Blood Trace H (Negative) Urine Nitrite Negative (Negative) Urine Bilirubin Negative (Negative) Urine Urobilinogen Negative (Negative) Ur Leukocyte Esterase Negative (Negative) Urine WBC (Auto) 0-5 (0-5) /hpf Urine RBC (Auto) 0-2 (0-2) /hpf U Hyaline Cast (Auto) 11-20 H (0-2) /lpf U Epithel Cells (Auto) 0-2 (0-2) /hpf Urine Bacteria (Auto) None Seen (None Seen) Granular Casts Present A (None Prsent) /lpf Ur Random Creatinine 84.8 mg/dl U Random Total Protein 250.7 H (0-11.9) mg/dl Protein/Creatinin Ratio 3.0 H (0-0.2) Urine Comment Ethyl Alcohol mg/dL < 10.0 (<10.0) mg/dl HIV 1&2 Ab/P24 Ag 4thGn Negative (Negative) Imaging Data Radiologist's Impression: Abdomen/Pelvis CT 03/26/25 16:50 Technique: Axial computed tomography images were obtained of the abdomen and pelvis without intravenous contrast. Findings: The liver is overall of normal size, attenuation, and contour with no sign of cirrhosis or significant fatty infiltration. No definite liver mass lesion is seen on this noncontrast study. The gallbladder appears unremarkable. No bile duct dilatation is noted. The spleen is of normal size. No focal splenic lesion is evident. The pancreas appears normal with no sign of acute or chronic pancreatitis and no mass lesion noted. The pancreatic duct is of normal caliber. The adrenal glands appear unremarkable. There is a 2 mm right renal calculus as well as a 1-2 mm calculus. There is no hydronephrosis or perinephric stranding. There is a 2.5 cm hyperdense right renal lesion and there is a 2.3 cm hyperdense left renal lesion. There are bilateral renal cysts, measuring up to 3.6 cm. There is an abdominal aortic aneurysm containing a bifurcating endoluminal graft, measuring up to 5.4 cm anteroposterior. No abdominal adenopathy is seen. The stomach appears normal. There is no sign of small bowel obstruction. There is mild diverticulosis without evidence of diverticulitis. The appendix appears normal. No free intraperitoneal fluid or air is identified. There is a 9 mm bladder calculus. No obvious bladder mass lesion is evident. The iliac arteries are of normal caliber. No pelvic adenopathy is noted. The prostate is enlarged measuring 4.8 cm. The lungs bases appear clear. There is coronary atherosclerosis Mild thoracolumbar degenerative disc disease is seen. No fracture is identified. No focal osseous lesion is seen Impression: 1. Bilateral hyperdense renal lesions, indeterminate in nature but likely proteinaceous or hemorrhagic cysts. A follow-up renal protocol abdominal CT with and without contrast could be obtained 2. Bilateral renal cysts and right renal calculi 3. Abdominal aortic aneurysm containing an endoluminal graft 4. 9 mm bladder calculus 5. Enlarged prostate. Correlation with PSA levels may be useful 6. Mild diverticulosis without evidence of diverticulitis ACT 112: Positive. There are findings on this exam that require communication between the performing entity and the patient following Patient Test Result Information Act ([place] ACT 112) guidelines. Electronically signed by Finn Montesinos 03-26-2025 5:[address] 03/26/25 16:50 Clinical History: Altered mental status Technique: Axial computed tomography images were obtained of the brain without intravenous contrast. Findings: There is diffuse cerebral atrophy, within expected limits for the patient's age. Areas of decreased attenuation are seen within the periventricular white matter, likely representing chronic small vessel ischemic disease. There is a small old infarct of the left frontal lobe There is no definite sign of acute infarction. No intracranial hemorrhage is evident. No definite mass lesion is seen on this noncontrast examination. There is no midline shift or other form of herniation. No hydrocephalus is seen. No fracture is identified. The orbits and the visualized paranasal sinuses appear unremarkable. The mastoid air cells appear clear. Impression: 1. Cerebral atrophy and chronic small vessel ischemic disease 2. 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 Chest X-Ray 03/26/25 16:51 Clinical History: Altered mental status Technique: A frontal view of the chest was obtained Findings: There are no confluent pulmonary infiltrates. The heart size is at the upper limit of normal. No pleural effusion or pneumothorax is seen. There is no definite pulmonary nodule. No fracture is noted. No foreign body is seen Impression: No active disease Electronically signed by Finn Montesinos 03-26-2025 5:21 PM ECG Data Attestation: I personally reviewed and interpreted this ECG as follows: Rate (beats per minute): 61 Rhythm: normal sinus Findings: no ST depression, no ST elevation or no prolonged QT Additional Comments: QRS 76 MDM Narrative 1649: The patient was evaluated in room A11. A complete history and physical exam was performed Cardiac monitoring: An order was placed for continuous cardiac monitoring. The monitor shows a rate of 60 with sinus rhythm interpreted by me Medical records reviewed. Patient's creatinine on March 24, 2025 was 4.01. Creatinine on January 29 was 3.54. Patient was seen in the emergency department and evaluated for admission on March 24, 2025. Reportedly the patient has history of CKD stage IV dementia and asked that he took too much Benadryl. Patient was seen by the hospitalist and determined to be safe for discharge home. 1835: Vital signs stable. Labs showed creatinine of 4.13. Imaging is unremarkable. Discussed case with Dr. Lyndsay Zendejas hospitalist and he will evaluate the patient for admission. Impression & Plan Acute kidney injury superimposed on CKD Discharge Plan Visit Data Chief Complaint: Abnormal Labs/Diagnostic Testing Stated Complaint: KIDNEY ED Provider: Jonny Webb Discharge Problem: Acute kidney injury superimposed on CKD Patient Disposition: Admitted As Inpatient Condition: Fair Discharge Instructions Interventions: ED Discharge Assessment Last Done: 03/26/25 20:28
[2025-03-27 08:41] LABS: Hemoglobin A1C 5.7 % (4.5-5.6)
--- NOTE | 2025-03-27 10:12 | Nephrology Consultation ---
Date of Consultation March 27, 2025 Assessment & Plan (1) ESRD (end stage renal disease): he is rapidly approaching need for dialysis, actually already there in several respects (uncontrolled BP w/ nephrotic range proteinuria though no nephrotic syndrome) hoping we can plan more for dialysis; if unremitting HTN may need to start HD in house but hoping we can stabilize HTN and follow as OP; K, volume status ok as is acid/base care coordinated w/ Dr Blanco by phone and w/ BUSINESS ANALYST CONSULTANT Geo by TText regarding BP goals and meds, dialysis dispo. we are in agreement. (2) Hypertension: with aneurysm and h/o frequent falls >> so BP target TBD but should certainly be under 150 systolic and likely under 140; w/ LB dementia hx (not super evident on exam), may have challenges with situational HTN -cont amlodipine, metoprolol -d/w Dr Blanco to resume bumex 1 mg bid17 IV>> despite this BP uncontrolled and will therefore >resume lisinopril > start hydralazine standing 10 mg tid and prn SBP > 170 with 10 mg IVq4h (3) Acute kidney injury superimposed on CKD: unlikely though possible this is ADAM -hold ACEI as able >> though w/ ongoing HTN not able to hol -cont to hold SGLT2i (4) AAA (abdominal aortic aneurysm): makes BP control more urgent > target SBP under 120 ideally but will need to account for his gait issues, dementia and likely liberalize target to SBP <135 for now; modify as indicated moving forward he has no dialysis access currently very interested in home modaility > is a committed care management assistant; I spent 50 minutes talking to , pt, (by phone) sister re his GFR trends and most recent readings, degree/nature of nephrotic range proteinuria, dialysis modalities with extended/indepth comparison of PD and HHD, in depth comparison of AVF and TDC as HD access and indications /risks/benefits for both ; they are unsure of modality currently >keep 03/31 appt w/ me in [facility] if no longer in hospital -in dialogue w/ OP dialysis (they wish to follow with [facility]) about arranging home visit depending on degree / nature of dementia may or may not tolerate dialysis therapies (5) Nephrotic range proteinuria: 2.6 gm albuminuria Juen 2024. 3 gm prot/creat here.almost certainly from DM; stone disease including bladder stone and renal cysts may contribute some glomerular/nonglomerular elements; not a biopsy candidate d/t cysts. complicates BP control History of Present Illness Reason for Consultation: Worsening CKD, requested by PCP Requesting Physician: Dr. Almaguer Attending Physician: Eduardo Blanco MD History of Present Illness 80-year-old male whom I am asked to evaluate for worsening CKD was admitted yesterday with metabolic encephalopathy in the setting of frontal lobe dementia and progressive CKD 4. PMH includes progressive CKD stage IV/V w/ nephrotic range proteinuria, CAD s/p stent x 4, hypertension, peripheral vascular disease, AAA s/p graft/stent, renal artery stenosis, type 2 diabetes on insulin, frontal lobe infarcts, dementia, nephrolithiasis (80% uric acid, 20% danitza oxalate) w/ h/o stent 02/2022 [facility]. Seen in the emergency department 2 days prior to this admission for altered mental status after his gave him 75 mg of Benadryl to treat sinus congestion and light cough. expressed concerns about her ability to care for patient at home at that encounter. Plan was to follow-up with me in [place]/closer to home close in; that appointment is scheduled for March 31. PCP referred pt back here d/t ongoing concerns about renal labs. Follows historically w/ [facility] Dr [place]; seen recently in [facility] February 2025 for second opinion regarding renal disease. Trends in renal function as follows: December 2021 baseline creatinine low twos; May 2024 creatinine 2.2; October 2024 creatinine 3; February 08, 2025 2.6 g albuminuria spot ratio; February 13, 2025 creatinine 3.7 GFR 16 potassium 4 bicarb 19 albumin 2.8 phosphorus 3.3. Also referred to ED here in January from [facility] clinic after clinic visit w/ that day 3 falls at home, R knee/hip/back pain, BP 190/90. Allergies Allergy/AdvReac Type Severity Reaction Status Date / Time shrimp AdvReac Severe Vomiting, Verified 03/24/25 13:32 diarrhea semaglutide [From Ozempic] AdvReac Mild "Makes me Verified 03/24/25 13:32 feel awful" Home Medications Medication Instructions Recorded Confirmed Type atorvastatin 40 mg tablet 40 mg PO QPM 12/30/21 03/26/25 History melatonin 10 mg capsule 30 mg PO HS PRN Sleep 10/18/22 03/26/25 History Prevagen 1 tab PO QPM 01/29/25 03/26/25 History fluoxetine 20 mg tablet 20 mg PO QPM 01/29/25 03/26/25 History gabapentin 300 mg capsule 300 mg PO QPM 01/29/25 03/26/25 History glipizide 5 mg tablet 5 mg PO QPM 01/29/25 03/26/25 History insulin glargine 100 unit/mL (3 35 unit subcut QPM 01/29/25 03/26/25 History mL) subcutaneous pen (Lantus Solostar U-100 Insulin) metoprolol succinate 100 mg 100 mg PO QPM 01/29/25 03/26/25 History tablet,extended release 24 hr amlodipine 5 mg tablet 10 mg PO QPM 03/24/25 03/26/25 History bumetanide 1 mg tablet 1 mg PO QPM 03/24/25 03/26/25 History empagliflozin 10 mg tablet 10 mg PO DAILY #30 tabs 03/24/25 03/26/25 Rx (Jardiance) lisinopril 10 mg tablet 10 mg PO QPM 03/24/25 03/26/25 History sodium bicarbonate 650 mg tablet 1,300 mg PO QPM 03/24/25 03/26/25 History Patient History Medical History Frontal lobe dementia Anemia History of kidney stones Diabetes mellitus, type 2 Hypertension Hyperlipidemia Myocardial Infarction ~2019 > stents x4 Follows with [facility] cardiology History of COVID-19 Dx 12/30/21 at [facility]- IDNow positive (cough, fatigue a time > resolved) Subsequently, preop Covid PCR done 02/11/22 was negative [id number]-[id number] kidney injury [place] r/t obstructive calculi S/P renal stent Kidney stone CKD (chronic kidney disease) Surgical History History of cystoscopy Cystoscopy, left ureteroscopy (12/31/21) at [facility] Cystoscopy, Ureteronephroscopy, Retrograde Pyelogram, Laser Lithotripsy, Stone Basket Extraction, Left Exchange of Stent Catheter (02/16/22): LMA igel #5 at [facility]. History of colonoscopy History of tooth extraction Upper denture History of umbilical hernia repair History of AAA (abdominal aortic aneurysm) repair @ [facility] (~2018) History of heart artery stent x4 (~2019) History of cardiac cath @ [facility] H/O lithotripsy x3 Family History Other No family history of adverse response to anesthesia Social History Smoking Status: Never smoker Second Hand Exposure: No; Do You Dip or Chew Tobacco: No; Tobacco Cessation Education Requested by Patient: No Hx Alcohol Use: No Hx Substance Use: No Preferred Language: Macedonian Communication Ability: Effective Research Interviewer Required: No Beliefs That Will Affect Care: None Current Living Situation: Spouse Current Living Situation Comment: and occasionally his son stays with him Other Information That Helps Us Care for You: No Feels Safe at Home: Yes Safety Concerns: Feels Safe At This Time Assistive Devices: Other Assistive Devices Comment: upper partial Physical Exam 2 Constitutional: well developed, well nourished and cooperative; no acute distress Eyes: EOM intact bilaterally ENMT: Mouth: + dry oral mucous membranes Respiratory: normal respiratory effort Auscultation: + diminished lung sounds Cardiovascular: Rate/Rhythm: regular rate and regular rhythm Extremities: + edema (LLE 1+) Gastrointestinal (Abdomen): Inspection/Auscultation: normal bowel sounds P ercussion/Palpation: abdomen soft; abdomen nontender Musculoskeletal: Extremities: strength 5/5 throughout Skin: no rashes, warm and dry Neurologic: lopez, fluent speech, no tremor Results & Data Vital Signs (Past 12 Hours) Vital Signs Temp Pulse Pulse Resp BP BP Pulse Ox 03/27/25 08:54 54 L 161/68 H 03/27/25 07:12 36.6 C 50 L 16 184/79 H 181/74 H 98 03/26/25 22:50 36.6 C 51 L 16 154/71 H 99 O2 Del Method 03/27/25 08:54 03/27/25 07:12 Room Air 03/26/25 22:50 Room Air Laboratory Results 03/26/25 16:55 08/13/25 16:55 Diagnostic Findings February 10, 2025 renal ultrasound (outside hospital) Bilateral renal cysts, right kidney 10.5 cm, left kidney 12.2 cm. No stone identified. 4.7 cm aneurysmal sac with stent/graft in place CT a/p non con 1. Bilateral hyperdense renal lesions, indeterminate in nature but likely proteinaceous or hemorrhagic cysts. A follow-up renal protocol abdominal CT with and without contrast could be obtained 2. Bilateral renal cysts and right renal calculi 3. Abdominal aortic aneurysm containing an endoluminal graft 4. 9 mm bladder calculus 5. Enlarged prostate. Correlation with PSA levels may be useful 6. Mild diverticulosis without evidence of diverticulitis CXR no active disease renal u/s here > mult BL renal cysts venous doppler > no DVT LLE
--- NOTE | 2025-03-27 10:47 | Ultrasound Report ---
RENAL ULTRASOUND CLINICAL HISTORY: complex renal cyst COMPARISON STUDY: CT scan dated 03/26/2025 TECHNIQUE: Sonography of the kidneys and the urinary bladder was performed. FINDINGS: The right kidney measures 11.4 cm in length. The left kidney measures 11.8 cm in length. Mu ltiple bilateral renal cystic lesions are visualized. The largest in the right is located within the upper pole measuring 3.4 cm in maximal diameter. The largest on the left is located within the midpol e measuring 17 mm in diameter. It is difficult to make a one to one correspondence with the lesions described on the prior CT scan. As stated in the prior report, if further workup is indicated a renal protocol abdominal CT scan woul d be considered the test of choice in follow-up. There is no hydronephrosis. No bladder abnormalities are visualized. Bilateral ureteral jets were delineated. There is mild prost atic enlargement. IMPRESSION: 1. Multiple bilateral renal cysts. 2. Mild prostatomegaly. ACT 112: Negative or not required by law. Electronically signed by: Oni Green M.D. 03/27/2025 10:46 AM
--- NOTE | 2025-03-27 10:47 | Pharmacy Report ---
Pharmacy Glycemic Short Note 2 - Date of Service March 27, 2025 - Glycemic Short BSG Results (Last 24 hours): 03/26/25 03/26/25 03/27/25 16:55 21:07 07:02 Glucose 200 H POC Glucose 175 H 140 H OUTPATIENT ANTIDIABETIC REGIMEN: * Jardiance 10mg PO daily * glipizide 5mg PO QPM * Lantus 35 units QPM * HbA1c 5.7% (03/27/25), 7.7% (12/31/21) ASSESSMENT: * Josr is a 80 year old male admitted with acute metabolic encephalopathy with underlying dementia and a history of type 2 diabetes mellitus. Pharmacy has been consulted to assist with glycemic management while inpatient. * Fasting BSG this AM within goal range, no basal administered yesterday evening, will add a conservative scale at bedtime tonight to give some basal unless BSGs significantly below goal range as BSGs will likely trend up without any basal. * NovoLog at a weight based stress of 1.5, appears appropriate at this time, will increase goal range to prevent hypoglycemia. PLAN FOR INPATIENT GLYCEMIC CONTROL: * Hold outpatient oral diabetes medications * Basal insulin * Lantus 10-20 units SQ HS (see eMAR for additional details) * Bolus insulin * NovoLog per scale ACHS or Q6hrs while NPO * Goal Range: Low 120 mg/dL - High 160 mg/dL * Correction Factor: 30 mg/dL/unit * Nutritional / Prandial insulin per carb ratio of 1 unit per 10 grams CHO consumed
--- NOTE | 2025-03-27 10:51 | Electrocardiogram Report ---
Test Reason : Blood Pressure : */* mmHG Vent. Rate : 61 BPM Atrial Rate : 61 BPM P-R Int : 160 ms QRS Dur : 76 ms QT Int : 458 ms P-R-T Axes : 8 -2 37 degrees QTcB Int : 461 ms Normal sinus rhythm Normal ECG When compared with ECG of 24-Mar-2025 12:41, Questionable change in QRS axis Confirmed by Jan Plaza ([id number]) on 03/27/2025 10:51:13 AM Referred By: REFERRED SELF Confirmed By: Jan Plaza
--- NOTE | 2025-03-27 10:53 | Ultrasound Report ---
LEFT LOWER EXTREMITY VENOUS DOPPLER HISTORY: Acute pain is on the left lower leg unilateral swelling COMPARISON STUDY: None. FINDINGS: There is normal compressibility, flow, and augmentation within the left lower extremity marilyn p venous system. IMPRESSION: No DVT within the left lower extremity. ACT 112: Negative or not required by law. Electronically signed by: Gregorio Burton M.D. 03/27/2025 10:51 AM
[2025-03-27] MEDS: BUMETANIDE 1 MG TAB PO ONE (14:22)
--- NOTE | 2025-03-27 14:58 | Hospitalist Progress Note ---
Date of Service March 27, 2025 Assessment & Plan (1) Acute metabolic encephalopathy: (2) Dementia: (3) CKD (chronic kidney disease), stage IV: (4) Diabetes mellitus, type 2: (5) AAA (abdominal aortic aneurysm): (6) History of coronary artery disease: (7) Essential hypertension: Plan 80 year old male with PMH significant for CKD stage IV, CAD s/p stents, AAA s/p graft, hypertension, peripheral vascular disease, renal artery stenosis, type 2 diabetes, known frontal lobe infarcts with dementia who presented to the ED on 03/26/2025 for worsening confusion and abnormal labs and is admitted for progressing CKD. Acute metabolic encephalopathy, resolved Dementia Recent ED visit on 03/24 for worsening confusion over the last 6 months per patient Multifactorial from dementia and progressive CKD Head CT reveals cerebral atrophy and chronic small vessel ischemic disease; old left frontal lobe infarct - no change from CT on 03/24 Labs grossly unremarkable aside from renal function as discussed below Melatonin dose reduced to 3mg (from 30mg) nightly Continue fluoxetine, gabapentin, prevagen given return to baseline mental status Delirium precautions CKD IV Case discussed with Dr Arteaga during ED visit on 03/24 who recommended close outpatient follow up (appt scheduled on 03/31) Referred to ED by PCP for concern for renal failure on labs today Renal function today at baseline with creat ~4 and eGFR ~14 - no change from ED visit on 03/24 CTAP revealed bilateral hypodense renal lesions likely proteinaceous cysts ; bilateral renal cysts; right renal calculi *Consider renal protocol abdominal CT scan Medications reviewed on 03/24 with dose reduction of Jardiance from 25mg to 10mg Nephrology consulted and notes rapidly approaching need for dialysis Recommends holding lisinopril and Jardiance AAA s/p graft Hypertension CTAP notes AAA contained endoluminal graft Nephrology advises target SBP <135 due to history of falls, gait issues, dementia Recommends bumex bid Continue amlodipine and metoprolol Holding lisinopril due to CKD Orthostatic vitals qshift PT/OT consults CAD s/p stent x4 Continue statin Diabetes Home glipizide on hold BSG ACHS and SSI while inpatient Glycemic pharmacy consulted Enlarged prostate Noted on CTAP PSA WNL Abnormal CT findings 9 mm bladder calculus Mild diverticulosis without diverticulitis DVT Prophylaxis: SQ Heparin Code Status: FULL CODE PCP: Filiberto Hernandes ([facility]) Patient seen in collaboration with Dr Blanco. Please see addendum. I spent a total of 60 minutes coordinating, documenting and providing care for this patient excluding time spent in the performance of separately billed services or time spent by another provider/QHP. Admission and Anticipated Discharge Date Admission Date: March 26, 2025 Supervising Physician Co-Signing Physician Notes Pt seen and examined by me, care coordinated w/ MAKAYLA Ferguson, pls refer to her note above for further detail. Pt seen this AM, sitting up in bed in NAD. He is answering all questions appropriately, currently feeling well. Denies any fever, chills, chest pain, shortness of breath or abdominal pain. LLE seems little more edematous, with healed wound on L lateral calf, pt reports he fell, tripped over a cat a while ago. Obtained dopller - no DVT. CT abdomen pelvis obtained on admission w/ abnormal findings on kidneys - will obtain US to further evaluate. BP elevated. Also discussed w/ nephrology - no need for dialysis at current time, but pt has been falling at home -> ordered PT/OT. cont. current home meds, but also will increase bumex 1 mg to bid. Given his BP still elevated , ordered small dose hydralazine prn. Will cont. to closely monitor, will transfer to tele. MD Francis Subjective Patient seen laying in bed Reports no acute complaints Denies headache, chest pain, SOB, abdominal pain, N/V/D, dysuria, weakness Review of Systems Review of Systems: All systems reviewed & are unremarkable except as noted in Subjective Physical Exam Physical Exam: General/Psych: WD/WN, laying in bed, NAD, conversing easily Head: normocephalic, atraumatic Eyes: normal inspection, PERRL, conjunctivae pink ENT: external ear and nose normal, oropharynx normal Neck: normal visual inspection, trachea midline Respiratory: normal respiratory effort, lungs clear to auscultation, no wheeze/rales/rhonchi, no accessory muscle use Cardiovascular: regular rate and rhythm, no murmur/rub/gallop, no JVD Extremities: no cyanosis or clubbing, normal peripheral pulses, no BLE edema Abdomen/GI: normal bowel sounds, soft, nontender Neurologic/MSK: A+Ox2, motor strength 5/5, moves all extremities Skin: no rashes, normal color, warm and dry Results & Data Results & Data Vital Signs (Past 12 Hours) Vital Signs Temp Pulse Pulse Resp BP BP Pulse Ox 03/27/25 08:54 54 L 161/68 H 03/27/25 07:12 36.6 C 50 L 16 184/79 H 181/74 H 98 O2 Del Method 03/27/25 08:54 03/27/25 07:12 Room Air Diagnostic Findings Renal Ultrasound 03/27/25 08:28 RENAL ULTRASOUND CLINICAL HISTORY: complex renal cyst COMPARISON STUDY: CT scan dated 03/26/2025 TECHNIQUE: Sonography of the kidneys and the urinary bladder was performed. FINDINGS: The right kidney measures 11.4 cm in length. The left kidney measures 11.8 cm in length. Multiple bilateral renal cystic lesions are visualized. The largest in the right is located within the upper pole measuring 3.4 cm in maximal diameter. The largest on the left is located within the midpole measuring 17 mm in diameter. It is difficult to make a one to one correspondence with the lesions described on the prior CT scan. As stated in the prior report, if further workup is indicated a renal protocol abdominal CT scan would be considered the test of choice in follow-up. There is no hydronephrosis. No bladder abnormalities are visualized. Bilateral ureteral jets were delineated. There is mild prostatic enlargement. IMPRESSION: 1. Multiple bilateral renal cysts. 2. Mild prostatomegaly. ACT 112: Negative or not required by law. Electronically signed by: Oni Green M.D. 03/27/2025 10:46 AM Venous Doppler Study 03/27/25 09:48 LEFT LOWER EXTREMITY VENOUS DOPPLER HISTORY: Acute pain is on the left lower leg unilateral swelling COMPARISON STUDY: None. FINDINGS: There is normal compressibility, flow, and augmentation within the left lower extremity deep venous system. IMPRESSION: No DVT within the left lower extremity. ACT 112: Negative or not required by law. Electronically signed by: Gregorio Burton M.D. 03/27/2025 10:51 AM Medications Administered Current Inpatient Medications Acetaminophen (Acetaminophen 325 Mg Tab) 650 mg PO Q4H PRN PRN Reason: pain/fever Stop: 04/25/25 21:03 Amlodipine Besylate (Amlodipine Besylate 5 Mg Tab) 10 mg PO QPM AMANDA Stop: 04/25/25 21:03 Last Admin: 03/26/25 21:35 Dose: 10 mg Atorvastatin Calcium (Atorvastatin 40 Mg Tab) 40 mg PO QPM AMANDA Stop: 04/25/25 21:03 Last Admin: 03/26/25 21:34 Dose: 40 mg Bumetanide (Bumetanide 1 Mg Tab) 1 mg PO BID [facility] Stop: 04/27/25 08:59 Dextrose (Dextrose 50% 50 Ml Syringe) 25 - 50 ml IV UD PRN; Protocol PRN Reason: Hypoglycemia Protocol Stop: 04/25/25 19:24 Fluoxetine HCl (Fluoxetine Hcl 20 Mg Cap) 20 mg PO QPM AMANDA Stop: 04/25/25 21:03 Last Admin: 03/26/25 21:35 Dose: 20 mg Gabapentin (Gabapentin 300 Mg Cap) 300 mg PO QPM [facility]AN[facility] Stop: 04/26/25 20:59 Glucagon (Glucagon For Inj 1 Mg Vial) 1 mg SQ UD PRN; Protocol PRN Reason: Hypoglycemia Protocol Stop: 04/25/25 19:24 Glucose (Glucose 40% Gel 15 Gm Tube) 15 - 30 gm PO UD PRN; Protocol PRN Reason: Hypoglycemia Protocol Stop: 04/25/25 19:24 Glucose (Glucose 10 Tab/Tube) 4 - 8 tab PO UD PRN; Protocol PRN Reason: Hypoglycemia Protocol Stop: 04/25/25 19:24 Heparin Sodium (Porcine) (Heparin Sod 5,000 Unit/0.5 Ml Vial) 5,000 units SQ Q8 [facility]AN[facility] Stop: 04/25/25 21:59 Last Admin: 03/27/25 14:22 Dose: 5,000 units Insulin Aspart (Insulin Aspart Per Unit Charge) 0 units SC ACHS AMANDA Stop: 04/25/25 20:59 Last Admin: 03/27/25 13:28 Dose: 5 units Insulin Glargine (Lantus Per Unit Charge) 0 units SC HS [facility]; Protocol Stop: 04/26/25 20:59 Lisinopril (Lisinopril 10 Mg Tab) 10 mg PO QPM [facility]AN[facility] Stop: 04/25/25 21:03 Last Admin: 03/26/25 21:34 Dose: 10 mg Melatonin (Melatonin 3 Mg Tab) 3 mg PO HS [facility] Stop: 04/25/25 21:03 Last Admin: 03/26/25 21:38 Dose: 3 mg Metoprolol Succinate (Metoprolol Succ 50mg Ext Rel Tab) 100 mg PO QPM [facility] Stop: 04/25/25 21:03 Last Admin: 03/26/25 21:34 Dose: 100 mg Miscellaneous (Carbohydrates For Hypoglycemia ) 15 - 30 gm PO UD PRN PRN Reason: Hypoglycemia Protocol Stop: 04/25/25 19:24 Miscellaneous (Jardiance - Order Awaiting Action) 1 each N/A QS [facility]ANDA Stop: 04/26/25 00:00 Last Admin: 03/27/25 08:51 Dose: Not Given Miscellaneous Information (Pharmacy Glycemic Mgmt Consult) 1 each N/A UD PRN PRN Reason: Consult Stop: 04/25/25 19:24 Ondansetron HCl (Ondansetron Inj 2 Mg/Ml 2 Ml Vial) 4 mg IV Q6H PRN PRN Reason: Nausea Stop: 04/25/25 21:03 Polyethylene Glycol (Polyethylene (Miralax) 17 Gm Pack) 17 gm PO DAILY PRN PRN Reason: Constipation Stop: 04/25/25 21:03 Sodium Bicarbonate (Sodium Bicarbonate 650 Mg Tab) 1,300 mg PO QPM [facility] Stop: 04/25/25 21:03 Last Admin: 03/26/25 21:35 Dose: 1,300 mg (2) Dementia Dementia severity: unspecified severity Dementia type: unspecified type
[2025-03-27] MEDS: hydrALAZINE 10 MG TAB PO ONE (16:26)
[2025-03-27] MEDS: BUMETANIDE 1 MG in SYRINGE 0 ML IV SCH (18:30)
[2025-03-27] MEDS ORDERED: NON-FORMULARY MEDICATION (Prevagen 1 TAB) PO SCH (21:00)
[2025-03-27] MEDS: LANTUS PER UNIT CHARGE SC SCH (21:02)
[2025-03-27] MEDS: hydrALAZINE 10 MG TAB PO SCH (21:05)
[2025-03-27] MEDS: GABAPENTIN 300 MG CAP PO SCH (21:05)
[2025-03-28] MEDS: hydrALAZINE 10 MG TAB PO PRN (03:26)
[2025-03-28 07:10] LABS: Hematocrit (blood only) 29.6 % (42.0-52.0); Hemoglobin 10.4 g/dl (14.0-18.0); Mean Corpuscular Hemoglobin 31.8 pg (25.0-34.0); Mean Corpuscular Volume 90.5 fL (80.0-100.0); Platelet Count 164 K/uL (130-400); RDW Standard Deviation 40.8 fL (36.4-46.3); Red Blood Count 3.27 M/uL (4.70-6.10); White Blood Count 6.72 K/ul (4.8-10.8)
[2025-03-28 07:28] LABS: Anion Gap 6.0 (3-11); Blood Urea Nitrogen 41.0 mg/dl (6-23); Calcium 8.4 mg/dl (8.6-10.3); Carbon Dioxide 21.0 mmol/L (21-32); Chloride 113.0 mmol/L (98-107); Creatinine Clr Calc Pharmacy 19.3 ml/min; Glucose 104.0 mg/dl (70-99(Fasting)); Magnesium 2.0 mg/dl (1.7-2.4); Potassium 3.9 mmol/L (3.5-5.1); Sodium 140.0 mmol/L (136-145)
[2025-03-28 08:34] VITALS: RESP 16
[2025-03-28] MEDS ORDERED: BUMETANIDE 1 MG TAB PO SCH (09:00)
--- NOTE | 2025-03-28 10:34 | Nephrology Progress Note ---
Date of Service March 28, 2025 Assessment & Plan (1) ESRD (end stage renal disease): Plan: he is rapidly approaching need for dialysis, actually already there in several respects (uncontrolled BP w/ nephrotic range proteinuria though no florid nephrotic syndrome); that said, renal function did improve today somewhat. I do not know how improvement will last. hoping we can plan more for dialysis as outpatient; if unremitting HTN may need to start HD in house but hoping we can stabilize HTN and follow as OP; K, volume status ok as is acid/base Reasonable from nephrology standpoint for discharge; care reviewed with patient and with by phone. Care coordinated w/ ORTHOTIC AND PROSTHETIC TECHNICIAN Geo for d/c med doses, f/u plan, labs in person; we are in agreement Nephrology discharge recommendations Diagnoses: ADAM on ESRD, progressive CKD Orthostatic hypotension Uncontrolled hypertension Abdominal aortic aneurysm s/p repair - Frontal lobe dementia RXs: - Amlodipine 10 mg p.o. 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 challenges taking meds Follow-up appointments: Keep March 31 appointment with me in [place] as previously scheduled (2) Hypertension: Plan: with aneurysm and h/o frequent falls and positive orthostatics today. Also with heart rates consistently in the low 50s on fairly robust dose of metoprolol >> so BP target TBD but should certainly be under 150 systolic and likely under 140 -- for now work toward <150 and then taper down; w/ LB dementia hx (not super evident on exam), may have challenges with situational HTN -cont amlodipine, metoprolol, lisinopril -cont bumex 1 mg bid17 IV >cont hydralazine standing 10 mg tid and prn SBP > 170 with 10 mg IVq4h (3) Acute kidney injury superimposed on CKD: Plan: marked improvement in creatinine 4.1-3.6 today with working on better blood pressure control -continue ACEI and loop -cont to hold SGLT2i (4) AAA (abdominal aortic aneurysm): Plan: makes BP control more urgent > target SBP under 120 ideally but will need to account for his gait issues, dementia and likely liberalize target to SBP <140 for now; modify as indicated moving forward he has no dialysis access currently very interested in home modality > is a committed animal care taker; on 03/27 we did extended/indepth comparison of PD and HHD, in depth comparison of AVF and TDC as HD access and indications /risks/benefits for both ; they are unsure of modality currently >keep 03/31 appt w/ me in [facility] if no longer in hospital -in dialogue w/ OP dialysis (they wish to follow with [facility]) about arranging home visit depending on degree / nature of dementia may or may not tolerate dialysis therapies (5) Nephrotic range proteinuria: Plan: 2.6 gm albuminuria January 2025. 3 gm prot/creat here.almost certainly from DM; stone disease including bladder stone and renal cysts may contribute some glomerular/nonglomerular elements; not a biopsy candidate d/t cysts. complicates BP control Admission and Anticipated Discharge Date Admission Date: March 26, 2025 Subjective Denies acute interval clinical events. Ambulated with PT. Orthostatic vital signs and met criteria for orthostatic hypotension with near 30 point drop in systolic blood pressure with standing. Physical Exam 2 Constitutional: well developed, well nourished and cooperative; no acute distress Eyes: EOM intact bilaterally ENMT: Mouth: + dry oral mucous membranes Respiratory: normal respiratory effort Auscultation: + diminished lung sounds Cardiovascular: Rate/Rhythm: regular rate and regular rhythm Extremities: n o edema Gastrointestinal (Abdomen): Inspection/Auscultation: normal bowel sounds P ercussion/Palpation: abdomen soft; abdomen nontender Musculoskeletal: Extremities: strength 5/5 throughout Skin: no rashes, warm and dry Results & Data Vital Signs (Past 12 Hours) Vital Signs Temp Pulse Pulse Resp BP BP Pulse Ox 03/28/25 08:33 36.6 C 51 L 16 153/69 H 98 03/28/25 08:00 53 L 03/28/25 03:20 36.7 C 55 L 18 146/80 H 97 03/27/25 23:00 36.6 C 88 18 136/69 97 O2 Del Method 03/28/25 08:33 Room Air 03/28/25 08:00 03/28/25 03:20 Room Air 03/27/25 23:00 Room Air Laboratory Results 03/28/25 06:53 03/28/25 06:53
--- NOTE | 2025-03-28 10:46 | Hospitalist Progress Note ---
Date of Service March 28, 2025 Assessment & Plan (1) Acute metabolic encephalopathy: Plan: 80 year old male with PMH significant for CKD stage IV, CAD s/p stents, AAA s/p graft, hypertension, peripheral vascular disease, renal artery stenosis, type 2 diabetes, known frontal lobe infarcts with dementia who presented to the ED on 03/26/2025 for worsening confusion and abnormal labs and is admitted for progressing CKD. Acute metabolic encephalopathy, resolved Dementia Recent ED visit on 03/24 for worsening confusion over the last 6 months per patient Multifactorial from dementia and progressive CKD Head CT reveals cerebral atrophy and chronic small vessel ischemic disease; old left frontal lobe infarct - no change from CT on 03/24 Labs grossly unremarkable aside from renal function as discussed below Melatonin dose reduced to 3mg (from 30mg) nightly Continue fluoxetine, gabapentin, prevagen given return to baseline mental status Delirium precautions CKD IV Case discussed with Dr Arteaga during ED visit on 03/24 who recommended close outpatient follow up (appt scheduled on 03/31) Referred to ED by PCP for concern for renal failure on labs today Renal function trending down creat ~4 and eGFR ~14; now down to Cr 3.63 eGFR 16.4 CTAP revealed bilateral hypodense renal lesions likely proteinaceous cysts ; bilateral renal cysts; right renal calculi Medications reviewed on 03/24 with dose reduction of Jardiance from 25mg to 10mg Nephrology consulted and notes rapidly approaching need for dialysis Recommends holding lisinopril and Jardiance AAA s/p graft Hypertension CTAP notes AAA contained endoluminal graft Nephrology advises target SBP <150 d/t orthostatic BP readings; patient has history of falls, gait issues, dementia Per Nephrology, the following recs advised for home management: * Amlodipine 10 mg p.o. at bedtime * Metoprolol succinate 50 mg nightly; dose decreased for bradycardia HR's 50's * Sodium bicarbonate 1300 mg twice daily (note dose adjustment) * Lisinopril 10 mg nightly * Bumex 1 mg twice daily with doses at least 4 hours or more apart * Hydralazine 10 mg po twice daily Continue Orthostatic vitals qshift and as needed Nephrology OP appt scheduled for Monday, 03/31 PT/OT consults CAD s/p stent x4 Continue statin Diabetes Home glipizide on hold BSG ACHS and SSI while inpatient Glycemic pharmacy consulted Enlarged prostate Noted on CTAP PSA WNL Abnormal CT findings 9 mm bladder calculus Mild diverticulosis without diverticulitis DVT Prophylaxis: SQ Heparin Code Status: FULL CODE PCP: Filiberto Hernandes ([facility]) Patient seen in collaboration with Dr Blanco. Please see addendum. I spent a total of 60 minutes coordinating, documenting and providing care for this patient excluding time spent in the performance of separately billed services or time spent by another provider/QHP. (2) Dementia: (3) CKD (chronic kidney disease), stage IV: (4) Diabetes mellitus, type 2: (5) AAA (abdominal aortic aneurysm): (6) History of coronary artery disease: (7) Essential hypertension: Admission and Anticipated Discharge Date Admission Date: March 26, 2025 Subjective Patient seen and examined at bedside. Patient was without complaints or concerns, but was asking about discharge plans. Denies chest pain, shortness of breath, N/V/D, headache, dizziness/headedness with changes in position, Review of Systems Review of Systems: All systems reviewed & are unremarkable except as noted in Subjective Physical Exam Physical Exam: VITALS: Reviewed. WEIGHT/BMI reviewed. GEN: Healthy appearing, well-developed, NAD. PSYCH: Good Judgment. AOx3. Normal memory, mood, and affect. HEENT -Head: NC/AT; -Eyes: PERRL, EOMI. No discharge or redn ess; -Ears: External ears are normal. -Nose: Normal nares. -Mouth and throat: MMM. Normal gums, muc sandhya, palate,. Good dentition. NECK: Supple, with no masses. CV: RRR, no m/r/g.No peripheral swelling LUNGS: CTAB, no w/r/c. ABD: Soft, round, NT/ND, NBS, no masses or organomegaly. No bruit : N/A SKIN: Warm, well perfused. No skin rashes or abnormal lesions. Dressing to right forearm MSK: No deformities, Normal gait. EXT: No clubbing, cyanosis, or edema. NEURO: CN II-XII grossly intact. Ambulating with no limitations.4/5 muscle RUE/RLE, 3/5 LLE, 4/5 LUE strength and tone. No focal deficits. Results & Data Results & Data Vital Signs (Past 12 Hours) Vital Signs Temp Pulse Pulse Resp BP BP Pulse Ox 03/28/25 08:33 36.6 C 51 L 16 153/69 H 98 03/28/25 08:00 53 L 03/28/25 03:20 36.7 C 55 L 18 146/80 H 97 03/27/25 23:00 36.6 C 88 18 136/69 97 O2 Del Method 03/28/25 08:33 Room Air 03/28/25 08:00 03/28/25 03:20 Room Air 03/27/25 23:00 Room Air Laboratory Results Short CBC 03/28/25 Range/Units 06:53 WBC 6.72 (4.8-10.8) K/ul Hgb 10.4 L (14.0-18.0) g/dl Hct 29.6 L (42.0-52.0) % Plt Count 164 (130-400) K/uL BMP 03/28/25 06:53 Sodium 140 Potassium 3.9 Chloride 113 H Carbon Dioxide 21 BUN 41 H Creatinine 3.63 H D Glucose 104 H Calcium 8.4 L (2) Dementia Dementia severity: unspecified severity Dementia type: unspecified type
--- NOTE | 2025-03-28 14:52 | Pharmacy Report ---
Pharmacy Glycemic Short Note 2 - Date of Service March 28, 2025 - Glycemic Short BSG Results (Last 24 hours): 03/27/25 03/27/25 03/28/25 16:35 20:06 06:53 Glucose 104 H POC Glucose 108 H 152 H 03/28/25 03/28/25 08:14 12:02 Glucose POC Glucose 108 H 125 H OUTPATIENT ANTIDIABETIC REGIMEN: * Jardiance 10mg PO daily * glipizide 5mg PO QPM * Lantus 35 units QPM * HbA1c 5.7% (03/27/25), 7.7% (12/31/21) ASSESSMENT: 03/28: * Josr received a total of 21 units of insulin yesterday (10 units were basal and 11 units were bolus). BSGs were 489-210-331-152mg/dL. CR loosened slightly in order to help prevent blood glucose from dropping below goal. * Fasting BSG was 108mg/dL this morning. Lantus scale at HS changed to be more conservative. 03/27: * Josr is a 80 year old male admitted with acute metabolic encephalopathy with underlying dementia and a history of type 2 diabetes mellitus. Pharmacy has been consulted to assist with glycemic management while inpatient. * Fasting BSG this AM within goal range, no basal administered yesterday evening, will add a conservative scale at bedtime tonight to give some basal unless BSGs significantly below goal range as BSGs will likely trend up without any basal. * NovoLog at a weight based stress of 1.5, appears appropriate at this time, will increase goal range to prevent hypoglycemia. PLAN FOR INPATIENT GLYCEMIC CONTROL: * Hold outpatient diabetes medications * Basal insulin * Lantus 10-20 units SQ HS (see eMAR for additional details) * Bolus insulin * NovoLog per scale ACHS or Q6hrs while NPO * Goal Range: Low 120 mg/dL - High 160 mg/dL * Correction Factor: 30 mg/dL/unit * Nutritional / Prandial insulin per carb ratio of 1 unit per 12 grams CHO consumed
[2025-03-28 15:23] VITALS: BP 170/78; TEMP 97.9; O2SAT 98
--- NOTE | 2025-03-28 17:16 | Discharge Summary ---
Date of Service March 28, 2025 Admission HPI Per Admitting Provider 80 yo male with pmhx of CKD stage IV, CAD, hypertension, peripheral vascular disease, renal artery stenosis, type 2 diabetes, known frontal lobe infarcts with dementia and baseline A&O x 1 who presents from home for worsening confusion and abnormal labs. Seen in ED 2 days ago for similar concerns, consult by medicine service in collaboration with nephrology recommending outpatient follow up for progressing CKD. In the ED, creatinine around same as 2 days ago, admitted to medicine for further workup. Patient seen and examined at bedside. present as well. States over the past 6 months he has had progressive, worsening confusion. Yesterday was a bad day, today good day, waxes and wanes. Per patient yesterday felt off, today feels fine. No nausea, vomiting, diarrhea, chest pain, SOB, other symptoms. Makes urine daily. Went to PCP visit who said patient should go to ED for evaluation by a labor relations or personnel negotiator for renal failure. No alcohol use, no drug use, no tobacco use, full code per discussion with , willing to do dialysis if necessary. Admission Exam Per Admitting Provider Gen: A&O 2 NAD HEENT: NCAT, EOMI, not icteric. External ears normal. No rhinorrhea. Moist mucous membranes. Neck: Supple, full range of motion, no observable masses, No meningeal sign. Lungs: No Respiratory distress. CV: RRR, no edema. Abdomen: Soft, nondistended, No rebound tenderness. MSK: No joint swelling, no redness. No asterixis. No pitting edema. Skin not overly dry. Skin: No rashes, petechiae, lesions. Normal color per patient. Neuro: Normal Gait, Grossly intact. Psych: Appropriate for situation. Principal Diagnosis Acute Metabolic Encephalopathy; CKD Stage IV Discharge Exam VITALS: Reviewed. WEIGHT/BMI reviewed. GEN: Healthy appearing, well-developed, NAD. PSYCH: Good Judgment. AOx3. Normal memory, mood, and affect. HEENT -Head: NC/AT; -Eyes: PERRL, EOMI. No discharge or redness; -Ears: External ears are normal. Normal TMs. -Nose: Normal nares. -Mouth and throat: MMM. Normal gums, mucosa, palate,. Good dentition. NECK: Supple, with no masses. CV: RRR, no m/r/g. LUNGS: CTAB, no w/r/c. ABD: Soft, NT/ND, NBS, no masses or organomegaly. : N/A SKIN: Warm, well perfused. No skin rashes or abnormal lesions. MSK: No deformities, Normal gait. EXT: No clubbing, cyanosis, or edema. NEURO: Ambulating with no limitations. Normal muscle strength and tone. No focal deficits. Discharge Data Allergies Allergy/AdvReac Type Severity Reaction Status Date / Time shrimp AdvReac Severe Vomiting, Verified 03/24/25 13:32 diarrhea semaglutide [From Ozempic] AdvReac Mild "Makes me Verified 03/24/25 13:32 feel awful" Consultations 03/26/25 18:35 ED Decision to Admit Stat 03/26/25 19:30 Consult Nephrology Routine Ordered Studies 03/26/25 16:50 CT abd pelvis wo con Stat 1. Bilateral hyperdense renal lesions, indeterminate in nature but likely proteinaceous or hemorrhagic cysts. A follow-up renal protocol abdominal CT with and without contrast could be obtained 2. Bilateral renal cysts and right renal calculi 3. Abdominal aortic aneurysm containing an endoluminal graft 4. 9 mm bladder calculus 5. Enlarged prostate. Correlation with PSA levels may be useful 6. Mild diverticulosis without evidence of diverticulitis CT head/brain wo con Stat 1. Cerebral atrophy and chronic small vessel ischemic disease 2. Old left frontal lobe infarct 03/27/25 08:28 US Renal Bladder [US renal/blad retro comp] Routine 1. Multiple bilateral renal cysts. 2. Mild prostatomegaly. 03/27/25 09:48 US venous doppler LE LT Routine 1. No DVT within the left lower extremity. Diabetes Follow up Recommendation for CGM consideration outpatient. Hospital Course (1) Acute metabolic encephalopathy: 80 year old male with PMH significant for CKD stage IV, CAD s/p stents, AAA s/p graft, hypertension, peripheral vascular disease, renal artery stenosis, type 2 diabetes, known frontal lobe infarcts with dementia who presented to the ED on 03/26/2025 for worsening confusion and abnormal labs and is admitted for progressing CKD. Acute metabolic encephalopathy, resolved Dementia Recent ED visit on 03/24 for worsening confusion over the last 6 months per patient Multifactorial from dementia and progressive CKD Head CT reveals cerebral atrophy and chronic small vessel ischemic disease; old left frontal lobe infarct - no change from CT on 03/24 Labs grossly unremarkable aside from renal function as discussed below Melatonin dose reduced to 3mg (from 30mg) nightly Continue fluoxetine, gabapentin, prevagen given return to baseline mental status Delirium precautions 03/28 patient is answering appropriately and discussed plan with at the bedside. Close outpatient followup with his providers. CKD IV Case discussed with Dr Arteaga during ED visit on 03/24 who recommended close outpatient follow up (appt scheduled on 03/31) Renal function today at baseline with creat ~4 and eGFR ~14 - down to Cr 3.63 CTAP revealed bilateral hypodense renal lesions likely proteinaceous cysts ; bilateral renal cysts; right renal calculi *Consider renal protocol abdominal CT scan Obtained renal U/S - follow up outpatient renal cysts Medications reviewed on 03/24 with dose reduction of Jardiance from 25mg to 10mg Nephrology consulted and discussed with patient med changes: - Amlodipine 10 mg p.o. at bedtime Metoprolol succinate 50 mg nightly (note dose reduction due to bradycardia) - Sodium bicarbonate 1300 mg twice daily (note dose adjustment) Lisinopril 10 mg nightly Bumex 1 mg twice daily with doses at least 4 hours or more apart - hydralazine 10 mg po twice daily AAA s/p graft Hypertension CTAP notes AAA contained endoluminal graft Nephrology advises target SBP <150 due to history of falls, gait issues, orthostatic hypotension, dementia Recommends bumex bid Continue amlodipine and metoprolol (dose decreased as above) PT/OT consults- recommend Home health; discussed with CAD s/p stent x4 Continue statin Diabetes Resume home regimen and follow up with PCP Enlarged prostate Noted on CTAP PSA WNL Abnormal CT findings 9 mm bladder calculus Mild diverticulosis without diverticulitis Renal cysts as above (2) Dementia: (3) CKD (chronic kidney disease), stage IV: (4) Diabetes mellitus, type 2: (5) AAA (abdominal aortic aneurysm): (6) History of coronary artery disease: (7) Essential hypertension: Total Time Total Time Spent Total Time Spent (In Minutes): Patient seen in collaboration with Dr. Blanco. Please see addendum.I spent a total of 45 minutes coordinating, documenting and providing care for this patient excluding time spent in the performance of separately billed services or time spent by another provider/QHP. Discharge Plan Discharge Items Patient Disposition: Home - Self-Care Reason For Visit: CONFUSION Discharge Diagnosis: Metabolic encephalopathy, Chronic Kidney Disease Stage 4 Condition on Discharge: Fair Activity: As commented below Lifting: Gradually increase as tolerated Bathing: No limitations Exercise/Sports: None Non-emergency contact: Primary Care Provider Call non-emergency contact if: you have any medication questions and your pain is unusual for you Follow-up/Referrals: Sangita Arteaga MD, PhD [Physician] - 03/31/25 1:40 pm (Date & Time 03/31/2025 1:40 PM Provider: Sangita Arteaga MD Nephrology [facility]) Filiberto Hernandes [Primary Care Provider] - (Please call and schedule a follow up appointment.) Diet: Low Sodium (2gm) Diet Comment: Maintain a 2gm sodium restricted diet Addtl Attending Provider Instructions: Mr. Craig, You were admitted to the hospital for worsening confusion and abnormal labs in the setting of kidney disease. Since you've been hospitalized, your kidney functioning has slightly improved and your most recent Creatinine is 3.63. Nephrology consulted during your admission and provided recommendations for blood pressure management, which has seemed to contribute to your worsening kidney functioning. See below for Nephrology's recommendations. Blood pressure has been challenging to manage as you experience shifts in blood pressure with position changes. This is called orthostatic hypotension. To treat this, we encourage you to wear compression stocking when out of bed and to change positions slowly. Please use your walker when going from sitting to standing and when ambulating at home. To alleviate orthostatic hypotension, we advise you to do the following: * Wear compression stockings when getting out of bed/chair * Change positions slowly- allowing rest for 3-5 minutes between position changes * Take medications as prescribed * Check blood pressure using home cuff daily and record- bring this record to Nephrology appointment * Maintain a low sodium diet less than 2gm Sodium daily Physical and Occupational therapy consulted while you were at the hospital for frequent falls. They do feel you need assistance at home and a referral for home health was made prior to discharge. Case Management will contact you when they hear back from Home Health Agency. MEDICATION CHANGES: Start Amlodipine 10 mg p.o. at bedtime- Next due tonight at 9pm Metoprolol succinate 50 mg nightly- Next due tonight at 9pm Sodium bicarbonate 1300 mg twice daily- Next due tonight at 9pm and then tomorrow at 9am Lisinopril 10 mg nightly- Next due at 9pm Bumex 1 mg twice daily with doses at least 4 hours or more apart- Next due tonight at 9pm and then again tomorrow at 9am hydralazine 10 mg po twice daily- Next due tonight at 9pm and then again at 9am Resume Atorvastatin as per home routine Fluoxetine Gabapentin Prevagen Glipizide Lantus 35 units nightly RECOMMENDATIONS FOR FOLLOW-UP: Follow up with Nephrology, Dr. Arteaga, on Monday, 03/31 in [place]. Please bring home blood pressure cuff to nephrology visit on 03/31 Maintain a low sodium diet. Follow up with Primary Care Provider- you will need to call to set up an appointment for hospital follow up OTHER INSTRUCTIONS: Seek medical attention if you have: * temperature above 101 * chest pain or trouble breathing * abdominal pain, nausea, vomiting * diarrhea, dark stools or bloody stools * any unanswered questions or concerns Call 911 if symptoms are severe. Please take good care of yourself. It has been a pleasure taking care of you. Please take care of yourself. If you have any questions regarding your recent hospitalization please contact [facility] and request Aashish Hardyist @ [phone]. Addtl Benefits Clerk Provider Instructions: DIABETES RECOMMENDATIONS: 1.) Would consider obtaining/using a continuous glucose monitor for closer mo nitoring of blood sugar levels and alarms. Encouraged further discussion with your outpatient provider. To help limit all the alarms, you can turn off all alarms except for the "low" alarm, if you would like. 2.) Please notify your provider of blood sugar levels frequently above 180 or below 90. Pending Studies at Discharge: No Stand-Alone Forms: [facility], Smoking Cessation Medications and DC Order Prescriptions: New amlodipine 5 mg Tablet 10 mg PO QPM 30 Days Qty: 60 0RF metoprolol succinate 50 mg capsule,sprinkle,ER 24hr 50 mg PO DAILY Qty: 30 0RF hydralazine 10 mg tablet 10 mg PO BID Qty: 60 0RF Continued melatonin 10 mg capsule 30 mg PO HS PRN (Reason: Sleep) atorvastatin 40 mg tablet 40 mg PO QPM Patient Comments: Last filled 06/2024 x90 day supply. Spouse states pt still taking. Original Directions: 40mg by mouth at bedtime. - 03/24/25 amlodipine 5 mg tablet 10 mg PO QPM sodium bicarbonate 650 mg tablet 1,300 mg PO QPM lisinopril 10 mg tablet 10 mg PO QPM Jardiance 10 mg tablet 10 mg PO DAILY Qty: 30 0RF Rx Instructions: Please take a new lower dose Jardiance 10mg daily based on kidney function fluoxetine 20 mg tablet 20 mg PO QPM gabapentin 300 mg capsule 300 mg PO QPM glipizide 5 mg tablet 5 mg PO QPM insulin glargine [Lantus Solostar U-100 Insulin] 100 unit/mL (3 mL) insulin pen 35 unit SUBCUT QPM Prevagen 1 tab PO QPM Changed bumetanide 1 mg tablet 1 mg PO BID 30 Days Qty: 60 0RF Discontinued metoprolol succinate 100 mg tablet extended release 24 hr 100 mg PO QPM Discharge Orders: Discharge Order (Routine); Ordered 03/28/25 Ordered By: Aria Steele/Other Patient Handouts: Managing Type 2 Diabetes Admission Data Admit Date/Time: 03/26/25 18:50 Attending Provider: Eduardo Blanco Admit Provider: Jean Marie Almaguer Primary Care Provider: Filiberto Hernandes Other Providers: Jean Marie Almaguer; Hiren Levine; [facility],Home Healthcare Other Interventions: Discharge Summary Assessment (RN) Last Done: 03/28/25 17:17 Supervising Physician Co-Signing Physician Notes Pt seen and examined by me, care coordinated w/ MAKAYLA Rios, pls refer to her note above for further detail. Pt is feeling well and is answering all questions appropriately. Denies any fever, chills, chest pain, shortness of breath or abdominal pain. BP elevated during this admission and medications adjusted. Discussed w/ nephrology - no need for dialysis at current time, pt will closely follow up w/ nephrology on Monday. Pt also found orthostatic, need to closely monitor, advised compression stockings when not in bed, changing positions cautiously to avoid falls, home health arranged by CM. Francis MD
[2025-03-28 17:18] VITALS: PULSE 52
== END 2025-03-28 18:47 | disposition home or self-care (01) | DRG 682 ==
LOC: ED 16:40 → 3N 18:50 → SUATTDRO 18:50 → 3N 20:28 → 2N 03-27 19:11